=== PATIENT | female | born 1945 | race Caucasian/White ===

== ENCOUNTER 2017-02-21 20:08 | Inpatient (IN) | payer OTHER ==
[~2017-02-21] VITALS: Ht 165.1 cm; Wt 93.6 kg
[~2017-02-21 20:08] MED LIST: ONDA4TAB7 SL
[2017-02-21] MEDS ORDERED: SODIUM CHLORIDE 0.9% 1000ML 1,000 ML IV STA (20:41)
[2017-02-21] MEDS ORDERED: ONDANSETRON INJ 2 MG/ML 2 ML VIAL IV STA (20:41)
[2017-02-21 20:59] LABS: BASO % 0.3 %; BASO ABS # 0.02 K/uL (0-0.2); COMPLETE YES; EOS % 1.2 %; HEMATOCRIT 41.3 % (37-47); IG% 0.1 %; MEAN CELL VOLUME 90.6 fL (80-100); MEAN CORPUSCULAR HEMOGLOBIN 31.6 pg (25-34); MEAN CORPUSCULAR HGB CONC 34.9 g/dl (32-36); NEUT % 76.4 %; PLATELET COUNT 392 K/uL (130-400); RED BLOOD COUNT 4.56 M/uL (4.2-5.4); WHITE BLOOD COUNT 6.88 K/uL (4.8-10.8)
--- NOTE | 2017-02-21 21:08 | DIAGNOSTIC IMAGING REPORT ---
ABD/PELVIS NO IV OR ORAL CONT CT DOSE: 1121.48 mGy.cm HISTORY: Pain. Obstruction. constipation? TECHNIQUE: Multiaxial CT images of the abdomen and pelvis were performed without contrast. A dose lowering technique was utilized adhering to the principles of ALARA. COMPARISON STUDY: 02/08/2015 FINDINGS: Lung bases are generally clear. Interval development of moderate abdominal and pelvic ascites. Gallstones are present within the gallbladder lumen. Increased fecal load throughout the colon consistent with fecal stasis. Mild right renal hydronephrosis small amount of free fluid within the pelvic cul-de-sac. Possible 3 mm obstructing calculus distal right ureter. Bladder is midline. Inguinal regions are unremarkable. There is no distention of the low sigmoid. There is moderate wall thickening of the proximal sigmoid possibly related to a nonspecific colitis. No evidence for drainable abscess or collection. IMPRESSION: 1. Interval development of moderate abdominal and pelvic ascites. 2. Considerable increase in fecal load throughout the colon consistent with generalized fecal stasis. 3. Wall thickening and mild pericolonic infiltrative change of the proximal sigmoid raising the possibility of a nonspecific colitis. 4. Mild right renal hydroureteronephrosis most likely secondary to a small distal right ureteral calculus measuring 3 mm. 5. Gallstones. The above report was generated using voice recognition software. It may contain grammatical, syntax or spelling errors. Electronically signed by: Jamaal Pardo M.D. 02/21/2017 9:06 PM Dictated Date/Time: 02/21/2017 9:00 PM
[2017-02-21 21:13] LABS: BUN/CREATININE RATIO 10.4 (10-20); CALCIUM 9.7 mg/dl (8.5-10.1); CREATININE 0.8 mg/dl (0.60-1.20); POTASSIUM 3.3 mmol/L (3.5-5.1)
[2017-02-21] MEDS ORDERED: MISCTAB78 PO (21:39)
[2017-02-21] MEDS ORDERED: LEVO100T7 PO (21:39)
[2017-02-21] MEDS ORDERED: CHOL2000 PO (21:39)
[2017-02-21] MEDS ORDERED: ASPI81TA28 PO (21:39)
[2017-02-21] MEDS ORDERED: CALCTAB5 PO (21:39)
[2017-02-21] MEDS ORDERED: PANT40TA PO (21:39)
[2017-02-21] MEDS ORDERED: LACTULOSE SYRUP 30 GM/45 ML UDP PO PRN (22:15)
[2017-02-21] MEDS ORDERED: LACTULOSE SYRUP 20 GM/30 ML UDC PO STA (22:26)
[2017-02-21] MEDS ORDERED: TAP WATER ENEMA PR STA (22:26)
[2017-02-21] MEDS ORDERED: ONDANSETRON INJ 2 MG/ML 2 ML VIAL IV PRN (22:30)
--- NOTE | 2017-02-21 22:38 | EMERGENCY ROOM VISIT NOTE ---
History Report prepared by Nely: Neyda Gutierrez Under the Supervision of: Dr. Ron Fournier D.O. First contact with patient: 20:24 Chief Complaint: GI ASSESSMENT Stated Complaint: BOWEL BLOCKED, CRAMPS, PAIN, VOMITING History of Present Illness The patient is a 71 year old female who presents to the Emergency Room with complaints of constant constipation beginning 2 months ago. The patient states that she has not had a normal bowel movement in the last 2 months and has only had pellet-like stool. She reports that she saw her PCP 1 week ago and had an x- ray that showed large amounts of stool. She notes that she has been taking Mirilax every day for the last 8 days. She reports that she got the results recently and was told to take Mirilax and to do an enema every day until she had a bowel movement. The patient states that she tried an enema this morning without any success. She states that 4 hours ago she had some water and suddenly began to vomit bile and has had many episodes in the last 4 hours. She complains of rib pain, abdominal cramping, bloating, and stomach gurgling. The patient states that she has not been eating normally and is not eating much food because she feels full very quickly. Source of History: patient Onset: 2 months ago Position: other (global) Quality: other (constipation) Timing: constant Associated Symptoms: + abdominal pain Note: She complains of rib pain, abdominal cramping, bloating, and stomach gurgling. Review of Systems See HPI for pertinent positives & negatives. A total of 10 systems reviewed and were otherwise negative. Past Medical & Surgical Medical Problems: (1) Abdominal pain (2) Diverticulitis Family History No significant family history Social History Smoking Status: Never Smoker Marital Status: Occupation Status: retired Current/Historical Medications Scheduled Aspirin (Aspirin Ec), 81 MG PO TW Calcium Carbonate (Caltrate 600), 1 TAB PO BID Cholecalciferol (Vitamin D3), 1 CAP PO DAILY Levothyroxine Sodium (Levothyroxine Sodium), 1 TAB PO DAILY Misc Natural Products (Osteo Bi-Flex Advanced Do), 2 TABS PO DAILY Pantoprazole (Protonix), 40 MG PO DAILY Scheduled PRN Ondansetron (Zofran Odt), 1-2 TABS SL Q6H PRN for Nausea Allergies Coded Allergies: No Known Allergies (Unverified , 02/21/17) Physical Exam Vital Signs Date Time Temp Pulse Resp B/P (MAP) Pulse Ox O2 Delivery O2 Flow Rate FiO2 02/21/17 21:41 89 02/21/17 21:01 93 18 130/88 94 Room Air 02/21/17 20:14 36.6 104 20 134/86 97 Room Air Physical Exam CONSTITUTIONAL/VITAL SIGNS: Reviewed / noted above. GENERAL: Non-toxic in appearance. INTEGUMENTARY: Warm, dry, and [place]. HEAD: Normocephalic. EYES: without scleral icterus or trauma. ENT/OROPHARYNX: clear and moist. LYMPHADENOPATHY/NECK: Is supple without lymphadenopathy or meningismus. RESPIRATORY: Lungs clear and equal. CARDIOVASCULAR: Regular rate and rhythm. GI/ABDOMEN: Soft and nontender. No organomegaly or pulsatile mass. No rebound or guarding. Normal bowel sounds. EXTREMITIES: Warm and well perfused. BACK: No CVA tenderness. NEUROLOGICAL: Intact without focal deficits. PSYCHIATRIC: normal affect. MUSCULOSKELETAL: Normally developed with good muscle tone. Medical Decision & Procedures ER Provider Diagnostic Interpretation: CT results as stated below per my review and radiologist interpretation: ABD/PELVIS NO IV OR ORAL CONT FINDINGS: Lung bases are generally clear. Interval development of moderate abdominal and pelvic ascites. Gallstones are present within the gallbladder lumen. Increased fecal load throughout the colon consistent with fecal stasis. Mild right renal hydronephrosis small amount of free fluid within the pelvic cul-de-sac. Possible 3 mm obstructing calculus distal right ureter. Bladder is midline. Inguinal regions are unremarkable. There is no distention of the low sigmoid. There is moderate wall thickening of the proximal sigmoid possibly related to a nonspecific colitis. No evidence for drainable abscess or collection. IMPRESSION: 1. Interval development of moderate abdominal and pelvic ascites. 2. Considerable increase in fecal load throughout the colon consistent with generalized fecal stasis. 3. Wall thickening and mild pericolonic infiltrative change of the proximal sigmoid raising the possibility of a nonspecific colitis. 4. Mild right renal hydroureteronephrosis most likely secondary to a small distal right ureteral calculus measuring 3 mm. 5. Gallstones. The above report was generated using voice recognition software. It may contain grammatical, syntax or spelling errors. Electronically signed by: Jamaal Pardo M.D. 02/21/2017 9:06 PM Dictated Date/Time: 02/21/2017 9:00 PM Laboratory Results 02/21/17 20:45 Red Blood Count 4.56, Mean Corpuscular Volume 90.6, Mean Corpuscular Hemoglobin 31.6, Mean Corpuscular Hemoglobin Concent 34.9, Mean Platelet Volume 9.0, Neutrophils (%) (Auto) 76.4, Lymphocytes (%) (Auto) 16.0, Monocytes (%) (Auto) 6.0, Eosinophils (%) (Auto) 1.2, Basophils (%) (Auto) 0.3, Neutrophils # (Auto) 5.26, Lymphocytes # (Auto) 1.10, Monocytes # (Auto) 0.41, Eosinophils # (Auto) 0.08, Basophils # (Auto) 0.02 02/21/17 20:45 Test 02/21/17 20:45 White Blood Count 6.88 K/uL (4.8-10.8) Red Blood Count 4.56 M/uL (4.2-5.4) Hemoglobin 14.4 g/dL (12.0-16.0) Hematocrit 41.3 % (37-47) Mean Corpuscular Volume 90.6 fL (80-100) Mean Corpuscular Hemoglobin 31.6 pg (25-34) Mean Corpuscular Hemoglobin Concent 34.9 g/dl (32-36) Platelet Count 392 K/uL (130-400) Mean Platelet Volume 9.0 fL (7.4-10.4) Neutrophils (%) (Auto) 76.4 % Lymphocytes (%) (Auto) 16.0 % Monocytes (%) (Auto) 6.0 % Eosinophils (%) (Auto) 1.2 % Basophils (%) (Auto) 0.3 % Neutrophils # (Auto) 5.26 K/uL (1.4-6.5) Lymphocytes # (Auto) 1.10 K/uL (1.2-3.4) Monocytes # (Auto) 0.41 K/uL (0.11-0.59) Eosinophils # (Auto) 0.08 K/uL (0-0.5) Basophils # (Auto) 0.02 K/uL (0-0.2) RDW Standard Deviation 44.2 fL (36.4-46.3) RDW Coefficient of Variation 13.3 % (11.5-14.5) Immature Granulocyte % (Auto) 0.1 % Immature Granulocyte # (Auto) 0.01 K/uL (0.00-0.02) Anion Gap 9.0 mmol/L (3-11) Est Creatinine Clear Calc Drug Dose 72.9 ml/min Estimated GFR () 86.0 Estimated GFR (Non- 74.2 BUN/Creatinine Ratio 10.4 (10-20) Calcium Level 9.7 mg/dl (8.5-10.1) Total Bilirubin 0.5 mg/dl (0.2-1) Direct Bilirubin 0.1 mg/dl (0-0.2) Aspartate Amino Transf (AST/SGOT) 22 U/L (15-37) Alanine Aminotransferase (ALT/SGPT) 20 U/L (12-78) Alkaline Phosphatase 76 U/L (45-117) Total Protein 7.7 gm/dl (6.4-8.2) Albumin 3.3 gm/dl (3.4-5.0) Lipase 128 U/L (73-393) Laboratory results as stated above per my review. Medications Administered Medications (Trade) Dose Ordered Sig/Rose Route Start Time Stop Time Status Last Admin Dose Admin Sodium Chloride 1,000 ml @ 999 mls/hr Q1H1M STAT IV 02/21/17 20:41 02/21/17 21:41 DC 02/21/17 20:41 999 MLS/HR Ondansetron HCl (Zofran Inj) 4 mg NOW STAT IV 02/21/17 20:41 02/21/17 20:42 DC 02/21/17 21:13 4 MG ED Course 2023: Previous medical records were reviewed. The patient was evaluated in room B6. A complete history and physical examination was performed. 2040: Zofran Inj 4mg IV, Sodium Chloride 1000 ml @ 999 mls/hr IV. 2133: Discussed the patient's case with Dr. Garrett. The patient will be evaluated for further treatment and disposition. 2141: On reevaluation, the patient is doing well. I discussed the results and findings with the patient. She verbalized agreement of the treatment plan. I spoke with Dr. Brown kelly. The patient will be evaluated for further management and care. Medical Decision Differential considered: pancreatitis, hepatitis, or acute cholecystitis, AAA, UTI, pyelonephritis, kidney stones, appendicitis, diverticulitis, shingles, bowel obstruction mesenteric ischemia, intussusception,hernia, testicular torsion, ovarian torsion, ruptured ovarian cyst,ectopic , . This is a 71-year-old female who presents to the ED with a chief complaint of not having a normal bowel movement for the past 2 months. The patient states that she has been passing stool similar to this is of a rabbit. She states that she has developed over the last week, early satiety. The patient states that instead of losing weight, she has been gaining weight. Her abdomen feels bloated. Her PCP did x-rays on February 11 and found that she was constipated. She recommended Ana lax as well as enema. The patient has been using Ana lax all week without improvement of symptoms. Today she did up significant abdominal cramps and pain. The patient's physical exam was relatively unremarkable. She had no abdominal tenderness on exam. A CT scan of the abdomen pelvis reveals moderate abdominal and pelvic ascites. She has fecal stasis noted and some pericolonic infiltrative changes. There is also noted to be a 3 mm right distal calculus with mild hydronephrosis. The patient's CBC and complete metabolic panel were unremarkable. Lipase was normal. The patient was told the results of the tests. Because of her symptoms and developing ascites as well as her abnormal changes in stool, she will be seen by the hospitalist for further inpatient evaluation and care. Medication Reconcilliation Current Medication List: was personally reviewed by me Blood Pressure Screening Patient's blood pressure: Elevated blood pressure Blood pressure disposition: Elevated BP felt to be situational Consults Time Called: 2119 Consulting Physician: Dr. Maximino Campa Returned Call: [phone] Discussed the patient's case with Dr. Ly. The patient will be evaluated for further treatment and disposition. Impression Primary Impression: Ascitic fluid Additional Impressions: Constipated Colitis Nausea & vomiting Change in bowel movement Scribe Attestation The scribe's documentation has been prepared under my direction and personally reviewed by me in its entirety. I confirm that the note above accurately reflects all work, treatment, procedures, and medical decision making performed by me. Departure Information Dispostion Being Evaluated By Hospitalist Referrals Geena Watts D.O. (PCP) Patient Instructions My [facility] Problem Qualifiers
[2017-02-21] MEDS ORDERED: ONDANSETRON INJ 2 MG/ML 2 ML VIAL ONE (22:49)
[2017-02-21 22:50] LABS: MAGNESIUM 1.9 mg/dl (1.8-2.4); THYROID STIMULATING HORMONE 3.63 uIu/ml (0.300-4.500)
[2017-02-21] MEDS ORDERED: PANTOprazole INJ 40 MG in SYRINGE 0 ML IV STA (22:51)
[2017-02-21 23:27] VITALS: BP 149/84; PULSE 95; TEMP 36.8; O2SAT 95
[2017-02-21 23:45] VITALS: BP 149/84; PULSE 95; TEMP 36.8; O2SAT 93; Ht 165.1 cm; Wt 93.6 kg
[2017-02-22] MEDS: POTASSIUM CHLR 10 MEQ / WTR 10 MEQ in PREMIXED WATER 100 ML IV SCH ×4 (00:12→05:26)
[2017-02-22] MEDS: D5NSS + 20MEQ KCL 1,000 ML IV SCH ×2 (00:12→09:23)
--- NOTE | 2017-02-22 00:51 | History and Physical ---
History & Physical Date & Time of Service: Feb 22, 2017 at 00:38 Chief Complaint: Abdominal Pain Primary Care Physician: Geena Watts D.O. History of Present Illness Source: patient, clinic records, hospital records 71 year old female with history of hypothyroidism, HLD presenting with nausea x [address] Esquivel for Primary Care. 2 months prior to admission, patient started to experience constipation, producing only small and occasionally loose stools. At the end of January, patient was seen by her PCP, KUB done showed large amount of stools in the colon, and was given Miralax. Per patient, she has tried with Miralax and even one dose of enema this morning with not much improvement. Later this afternoon, patient drank water but apparently thew it up right after , and had more bilious vomiting. She then presented to the ER. CT abdomen: 1. Interval development of moderate abdominal and pelvic ascites. 2. Considerable increase in fecal load throughout the colon consistent with generalized fecal stasis. 3. Wall thickening and mild pericolonic infiltrative change of the proximal sigmoid raising the possibility of a nonspecific colitis. 4. Mild right renal hydroureteronephrosis most likely secondary to a small distal right ureteral calculus measuring 3 mm. 5. Gallstones. On my exam, patient seen laying in bed, comfortable. Has occasional diffuse abdominal discomfort. Denies weight loss, poor appetite, but reports decreased urine output. No other symptoms. Patient reports Colonoscopy done 2-[address] Pereira for screening, and revealed polyps. Past Medical/Surgical History Medical Problems: (1) Diverticulitis Status: Resolved Family History No significant family history Social History Smoking Status: Never Smoker Smokeless Tobacco Use: No Alcohol Use: none Drug Use: none Marital Status: Housing status: lives with family Occupational Status: retired Multi-Drug Resistant Organisms History of MDRO: No Allergies Coded Allergies: No Known Allergies (Unverified , 02/21/17) Home Medications Scheduled Aspirin (Aspirin Ec), 81 MG PO TW Calcium Carbonate (Caltrate 600), 1 TAB PO BID Cholecalciferol (Vitamin D3), 1 CAP PO DAILY Levothyroxine Sodium (Levothyroxine Sodium), 1 TAB PO DAILY Misc Natural Products (Osteo Bi-Flex Advanced Do), 2 TABS PO DAILY Pantoprazole (Protonix), 40 MG PO DAILY Scheduled PRN Ondansetron (Zofran Odt), 1-2 TABS SL Q6H PRN for Nausea Review of Systems Constitutional- no fever; no weight loss Eyes- no acute visual changes ENT- no sinus drainage; no pharyngitis Pulmonary- no cough, no wheezing, no shortness of breath Cardiac- no chest pain, no palpitations, no orthopnea, no dependent edema GI- (+) as noted above - no dysuria, no hematuria Musculoskeletal- no arthralgias, no myalgias Derm- no rashes, no new skin lesions, no changing skin lesions Hematologic- no unusual bruising, no unusual bleeding Lymphatics- no adenopathy Endocrine- no polyuria or polydipsia; no heat or cold intolerance Neuro- no headaches, no focal neurologic symptoms Psych- no anxiety, no depression Physical Exam Vital Signs Date Time Temp Pulse Resp B/P (MAP) Pulse Ox O2 Delivery O2 Flow Rate FiO2 02/21/17 23:27 36.8 95 18 149/84 (105) 95 Room Air 02/21/17 22:58 36.6 101 15 134/85 93 02/21/17 22:55 134/85 02/21/17 22:53 101 15 93 02/21/17 22:48 100 24 93 02/21/17 22:43 94 21 91 02/21/17 22:38 101 19 94 02/21/17 22:33 98 20 02/21/17 22:28 99 19 02/21/17 22:23 97 25 02/21/17 22:18 101 22 02/21/17 22:13 95 27 02/21/17 22:08 98 23 02/21/17 22:03 97 26 02/21/17 21:58 93 22 95 02/21/17 21:53 100 21 95 02/21/17 21:48 92 22 94 02/21/17 21:43 98 22 94 02/21/17 21:41 89 02/21/17 21:38 96 21 93 02/21/17 21:33 91 24 96 02/21/17 21:28 95 20 96 02/21/17 21:23 83 26 95 02/21/17 21:18 85 23 96 02/21/17 21:01 93 18 130/88 94 Room Air 02/21/17 21:01 130/88 02/21/17 20:14 36.6 104 20 134/86 97 Room Air General Appearance: WD/WN, no apparent distress Head: normocephalic, atraumatic Eyes: normal inspection, EOMI, sclerae normal ENT: normal ENT inspection, hearing grossly normal, pharynx normal Neck: supple, no adenopathy, thyroid normal, no JVD, trachea midline Respiratory/Chest: chest non-tender, lungs clear, normal breath sounds Cardiovascular: regular rate, rhythm, no edema, no JVD, no murmur Abdomen/GI: non tender, soft, + distended (mildly), + pertinent finding ( hypoactive bowel sounds) Back: normal inspection, no CVA tenderness Extremities/Musculoskelatal: normal inspection, no calf tenderness, no pedal edema 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, no motor/sensory deficits, alert, normal mood/affect, oriented x 3 Skin: normal color, warm/dry, no rash Lymphatic: no adenopathy Diagnostics Laboratory Results Results Past 24 Hours Test 02/21/17 20:45 Range/Units White Blood Count 6.88 4.8-10.8 K/uL Red Blood Count 4.56 4.2-5.4 M/uL Hemoglobin 14.4 12.0-16.0 g/dL Hematocrit 41.3 37-47 % Mean Corpuscular Volume 90.6 80-100 fL Mean Corpuscular Hemoglobin 31.6 25-34 pg Mean Corpuscular Hemoglobin Concent 34.9 32-36 g/dl Platelet Count 392 130-400 K/uL Mean Platelet Volume 9.0 7.4-10.4 fL Neutrophils (%) (Auto) 76.4 % Lymphocytes (%) (Auto) 16.0 % Monocytes (%) (Auto) 6.0 % Eosinophils (%) (Auto) 1.2 % Basophils (%) (Auto) 0.3 % Neutrophils # (Auto) 5.26 1.4-6.5 K/uL Lymphocytes # (Auto) 1.10 1.2-3.4 K/uL Monocytes # (Auto) 0.41 0.11-0.59 K/uL Eosinophils # (Auto) 0.08 0-0.5 K/uL Basophils # (Auto) 0.02 0-0.2 K/uL RDW Standard Deviation 44.2 36.4-46.3 fL RDW Coefficient of Variation 13.3 11.5-14.5 % Immature Granulocyte % (Auto) 0.1 % Immature Granulocyte # (Auto) 0.01 0.00-0.02 K/uL Sodium Level 135 136-145 mmol/L Potassium Level 3.3 3.5-5.1 mmol/L Chloride Level 101 98-107 mmol/L Carbon Dioxide Level 25 21-32 mmol/L Anion Gap 9.0 3-11 mmol/L Blood Urea Nitrogen 8 7-18 mg/dl Creatinine 0.80 0.60-1.20 mg/dl Est Creatinine Clear Calc Drug Dose 72.9 ml/min Estimated GFR () 86.0 Estimated GFR (Non- 74.2 BUN/Creatinine Ratio 10.4 10-20 Random Glucose 100 70-99 mg/dl Calcium Level 9.7 8.5-10.1 mg/dl Magnesium Level 1.9 1.8-2.4 mg/dl Total Bilirubin 0.5 0.2-1 mg/dl Direct Bilirubin 0.1 0-0.2 mg/dl Aspartate Amino Transf (AST/SGOT) 22 15-37 U/L Alanine Aminotransferase (ALT/SGPT) 20 12-78 U/L Alkaline Phosphatase 76 45-117 U/L Total Protein 7.7 6.4-8.2 gm/dl Albumin 3.3 3.4-5.0 gm/dl Lipase 128 73-393 U/L Thyroid Stimulating Hormone (TSH) 3.630 0.300-4.500 uIu/ml Diagnostic Radiology per h&P Impression Assessment and Plan 71 year old female with history of hypothyroidism, HLD presenting with nausea x 1 day. CONSTIPATION, FECAL IMPACTION - check TSH - trial of Tap water enema, Lactulose - strict NPO D5 + NSS - GI consulted MODERATE ASCITES - liver panel normal - may need diagnostic paracentesis GI Consulted CHOLELITHIASIS - asymptomatic R URETERAL STONE 3MM WITH MILD RIGHT HYDRONEPHROSIS - will consult Urology PROXIMAL SIGMOID THICKENING - may need repeat Colonoscopy HYPOKALEMIA - IV K ordered - monitor DVT prophylaxis SCDs Full Code Dispo pending anticipate d/c home when medically stable, cleared by GI ff up with Dr. Boudreaux for PCP VTE Prophylaxis VTE Risk Assessment Done? Y/N: Yes Risk Level: Moderate Given or contraindicated: SCD's
[2017-02-22] MEDS: ONDANSETRON INJ 2 MG/ML 2 ML VIAL IV PRN ×3 (05:25→18:03)
[2017-02-22] MEDS: KETOROLAC TROMETHAMINE 15 MG/ML VIAL IV PRN (06:07)
[2017-02-22 06:12] LABS: BASO % 0.1 %; BASO ABS # 0.01 K/uL (0-0.2); COMPLETE YES; EOS % 0.3 %; HEMATOCRIT 40.7 % (37-47); IG% 0.1 %; LYMPH ABS # 1.01 K/uL (1.2-3.4); MEAN CELL VOLUME 91.5 fL (80-100); MEAN CORPUSCULAR HEMOGLOBIN 30.8 pg (25-34); MEAN CORPUSCULAR HGB CONC 33.7 g/dl (32-36); MEAN PLATELET VOLUME 9.3 fL (7.4-10.4); MONO % 6.4 %; NEUT % 78.1 %; PLATELET COUNT 406 K/uL (130-400); RED BLOOD COUNT 4.45 M/uL (4.2-5.4); WHITE BLOOD COUNT 6.75 K/uL (4.8-10.8)
[2017-02-22 06:56] LABS: BUN/CREATININE RATIO 7.7 (10-20); CALCIUM 8.9 mg/dl (8.5-10.1); CREATININE 0.79 mg/dl (0.60-1.20); POTASSIUM 4.3 mmol/L (3.5-5.1)
[2017-02-22 07:14] VITALS: BP 120/81; PULSE 90; TEMP 36.7; O2SAT 92
[2017-02-22] MEDS: PANTOprazole INJ 40 MG in SYRINGE 0 ML IV SCH (09:22)
[2017-02-22] MEDS: LEVOTHYROXINE SODIUM INJ 25 MCG in SYRINGE 0 ML IV SCH (09:22)
[2017-02-22] MEDS ORDERED: NURSING VERBAL MED ORDER ONE ×2 (10:30→15:00)
[2017-02-22] MEDS: D5W AND NSS 1,000 ML IV SCH ×2 (10:47→23:15)
[2017-02-22] MEDS ORDERED: METOCLOPRAMIDE HCL INJ 5 MG/ML 2 ML VIAL IV PRN (14:00)
[2017-02-22] MEDS ORDERED: METOCLOPRAMIDE HCL INJ 5 MG/ML 2 ML VIAL IV STA (14:00)
[2017-02-22 14:35] VITALS: BP 136/84; PULSE 88; TEMP 36.7; O2SAT 95
[2017-02-22] MEDS: TAP WATER ENEMA PR SCH (15:30)
[2017-02-22 16:14] LABS: URINE APPEARANCE CLOUDY (CLEAR); URINE COLOR DK YELLOW; URINE EPITHELIAL CELL AUTO >30 /lpf (0-5); URINE NITRITE NEG (NEG); URINE SPECIFIC GRAVITY 1.026 (1.000-1.030); UROBILINOGEN NEG (NEG)
[2017-02-22 16:25] LABS: MANUAL MICROSCOPIC REQUIRED? NO; REVIEW REQ? YES; URINE BILIRUBIN NEG (NEG)
--- NOTE | 2017-02-22 16:26 | Gastrointestinal Consultation ---
Gastrointestinal Consultation Date of Consultation: Feb 22, 2017 Attending Physician: Luis Vieira Consulting Physician: Michael Navarro Reason for Consultation: contispation, ascites History of Present Illness Patient is a 71 year old female with chief complaint of constipation. Pt states her usual BM pattern once a day formed stool until about 2 months ago change in bms with skinny stools and difficulty moving bowels. Recently told by PCO to take miralax and despite 8 days of that worsening abd pain up to 7/10 with abd distension and minimal BMs. No bloody nor black stools. Has been gaining wt despite poor appetitis. No dyspahgia. No bloody nor black stools. New GERD placed on protonix recently. 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 CT scan a/p gallstones, moderate ascites, increased fecal load, 3 mm R renal stone with hydronephrosis, mod thickening proximal sigmoid. . Ascites new since 01/2015 CT. Outpt EMR noted colonoscopy by Dr Pereira 01/2014 showing sigmoid diverticulosis and AC and HF polyps removed path tubular adenoma. She has no abd pain at present. She has had 3 enemas this admit last one recently with no results. Past Medical/Surgical History Medical Problems: (1) Ascitic fluid Status: Acute (2) Change in bowel movement Status: Acute (3) Colitis Status: Acute (4) Constipated Status: Acute (5) Nausea & vomiting Status: Acute Family History No significant family history Social History Smoking Status: Never Smoker Drug Use: none Marital Status: Occupation Status: retired Allergies Coded Allergies: No Known Allergies (Unverified , 02/21/17) Current Medications Home Meds and Scripts Medications Dose Route/Sig Max Daily Dose Days Date Category Caltrate 600 (Calcium Carbonate) 1,500 Mg Tab 1 Tab PO BID 02/21/17 Reported Osteo Bi-Flex Advanced Do (Misc Natural Products) 1 Tab Tab 2 Tabs PO DAILY 02/21/17 Reported Aspirin Ec (Aspirin) 81 Mg Tab 81 Mg PO TW 02/21/17 Reported Vitamin D3 (Cholecalciferol) 2,000 Unit Cap 1 Cap PO DAILY 30 02/21/17 Reported Levothyroxine Sodium 100 Mcg Tab 1 Tab PO DAILY 30 02/21/17 Reported Protonix (Pantoprazole Sodium) 40 Mg Tab 40 Mg PO DAILY 02/21/17 Reported Zofran Odt (Ondansetron) 4 Mg Tab 1-2 Tabs SL Q6H PRN 02/08/15 Rx Review of Systems 10 ROS negative except as in HPI Physical Exam Date Time Temp Pulse Resp B/P (MAP) Pulse Ox O2 Delivery O2 Flow Rate FiO2 02/22/17 15:20 Room Air 02/22/17 14:35 36.7 88 18 136/84 (101) 95 Room Air 02/22/17 09:00 Room Air 02/22/17 07:14 36.7 90 18 120/81 (94) 92 Room Air 02/21/17 23:45 36.8 95 18 149/84 93 Room Air 02/21/17 23:27 36.8 95 18 149/84 (105) 95 Room Air 02/21/17 22:58 36.6 101 15 134/85 93 02/21/17 22:55 134/85 02/21/17 22:53 101 15 93 02/21/17 22:48 100 24 93 02/21/17 22:43 94 21 91 02/21/17 22:38 101 19 94 02/21/17 22:33 98 20 02/21/17 22:28 99 19 02/21/17 22:23 97 25 02/21/17 22:18 101 22 02/21/17 22:13 95 27 02/21/17 22:08 98 23 02/21/17 22:03 97 26 02/21/17 21:58 93 22 95 02/21/17 21:53 100 21 95 02/21/17 21:48 92 22 94 02/21/17 21:43 98 22 94 02/21/17 21:41 89 02/21/17 21:38 96 21 93 02/21/17 21:33 91 24 96 02/21/17 21:28 95 20 96 02/21/17 21:23 83 26 95 02/21/17 21:18 85 23 96 02/21/17 21:01 93 18 130/88 94 Room Air 02/21/17 21:01 130/88 02/21/17 20:14 36.6 104 20 134/86 97 Room Air General Appearance: WD/WN, no apparent distress ENT: hearing grossly normal, pharynx normal Neck: supple, trachea midline Respiratory/Chest: lungs clear, no respiratory distress Cardiovascular: regular rate, rhythm, + pertinent finding (mild bilateral lower ext edema) Abdomen: normal bowel sounds, non tender, no organomegaly, + pertinent finding (abdomen distended and tymanitic) 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/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: 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, no motor/sensory deficits, normal mood/affect Skin: normal color, no jaundice Laboratory Results Last 24 Hours Test 02/21/17 20:45 02/22/17 05:42 White Blood Count 6.88 K/uL 6.75 K/uL Red Blood Count 4.56 M/uL 4.45 M/uL Hemoglobin 14.4 g/dL 13.7 g/dL Hematocrit 41.3 % 40.7 % Mean Corpuscular Volume 90.6 fL 91.5 fL Mean Corpuscular Hemoglobin 31.6 pg 30.8 pg Mean Corpuscular Hemoglobin Concent 34.9 g/dl 33.7 g/dl Platelet Count 392 K/uL 406 K/uL Mean Platelet Volume 9.0 fL 9.3 fL Neutrophils (%) (Auto) 76.4 % 78.1 % Lymphocytes (%) (Auto) 16.0 % 15.0 % Monocytes (%) (Auto) 6.0 % 6.4 % Eosinophils (%) (Auto) 1.2 % 0.3 % Basophils (%) (Auto) 0.3 % 0.1 % Neutrophils # (Auto) 5.26 K/uL 5.27 K/uL Lymphocytes # (Auto) 1.10 K/uL 1.01 K/uL Monocytes # (Auto) 0.41 K/uL 0.43 K/uL Eosinophils # (Auto) 0.08 K/uL 0.02 K/uL Basophils # (Auto) 0.02 K/uL 0.01 K/uL RDW Standard Deviation 44.2 fL 45.1 fL RDW Coefficient of Variation 13.3 % 13.4 % Immature Granulocyte % (Auto) 0.1 % 0.1 % Immature Granulocyte # (Auto) 0.01 K/uL 0.01 K/uL Sodium Level 135 mmol/L 138 mmol/L Potassium Level 3.3 mmol/L 4.3 mmol/L Chloride Level 101 mmol/L 105 mmol/L Carbon Dioxide Level 25 mmol/L 25 mmol/L Anion Gap 9.0 mmol/L 8.0 mmol/L Blood Urea Nitrogen 8 mg/dl 6 mg/dl Creatinine 0.80 mg/dl 0.79 mg/dl Est Creatinine Clear Calc Drug Dose 72.9 ml/min 73.9 ml/min Estimated GFR () 86.0 87.3 Estimated GFR (Non- 74.2 75.3 BUN/Creatinine Ratio 10.4 7.7 Random Glucose 100 mg/dl 97 mg/dl Calcium Level 9.7 mg/dl 8.9 mg/dl Magnesium Level 1.9 mg/dl 2.0 mg/dl Total Bilirubin 0.5 mg/dl Direct Bilirubin 0.1 mg/dl Aspartate Amino Transf (AST/SGOT) 22 U/L Alanine Aminotransferase (ALT/SGPT) 20 U/L Alkaline Phosphatase 76 U/L Total Protein 7.7 gm/dl Albumin 3.3 gm/dl Lipase 128 U/L Thyroid Stimulating Hormone (TSH) 3.630 uIu/ml Impression changes in BMs/constipation--TSh normal---prep from below not working. Start golytely and will likely take 48 hours to prep with colonscopy when prepped. ascites--recomend diagnostic paracentesis--rule out cirrhosis, cancer n/v--secondary to obstipation thickened sigmoid on CT scan--visualize at time of colonoscopy. I am going off service tomorrow 02/23/[address] Pereira assuming GI care then.
[2017-02-22] MEDS: LAVAGE SOLUTION 4000ML PO SCH (18:03)
--- NOTE | 2017-02-22 18:54 | Progress Note ---
Progress Note Date of Service Feb 22, 2017. Progress Note was informed by nurse that patient had dark colored vomiting. started after she was drinking golytely fluid with recent tea beverage. has had multiple episodes of small of vomitus today. will keep npo except meds. will hold golytely for now. patient agrees to NG tube with intermittent suction. will try to suction upper GI fluids and air before restarting GI practice management consultant's plan for golytely prior to colonoscopy. will send CBC and INR to ensure that the dark colored vomit is tea and food rather than bleeding. otherwise patient appears comfortable and not in distress and voices agreement with above plan.
--- NOTE | 2017-02-22 19:16 | DIAGNOSTIC IMAGING REPORT ---
CHEST ONE VIEW PORTABLE CLINICAL HISTORY: NG tube placement. Tube position COMPARISON STUDY: No previous studies for comparison. FINDINGS: Nasogastric tube positioned within the gastric fundus. Mild left basilar atelectasis. Lungs otherwise appear clear. IMPRESSION: Nasogastric tube coiled within the gastric fundus The above report was generated using voice recognition software. It may contain grammatical, syntax or spelling errors. Electronically signed by: Jamaal Pardo M.D. 02/22/2017 7:14 PM Dictated Date/Time: 02/22/2017 7:14 PM
[2017-02-22] MEDS: SENNA 8.6 MG TAB PO SCH (20:00)
--- NOTE | 2017-02-22 20:20 | DIAGNOSTIC IMAGING REPORT ---
CHEST ONE VIEW PORTABLE CLINICAL HISTORY: recheck of ng placement tube position COMPARISON STUDY: 02/22/2017 at 7:09 PM FINDINGS: Nasogastric tube remains coiled at its distal aspect. Appears to been pulled back somewhat is and is at the gastroesophageal junction. IMPRESSION: Nasogastric tube is currently coiled with its tip at the gastroesophageal junction. This again should be repositioned. The above report was generated using voice recognition software. It may contain grammatical, syntax or spelling errors. Electronically signed by: Jamaal Pardo M.D. 02/22/2017 8:19 PM Dictated Date/Time: 02/22/2017 8:17 PM
[2017-02-22 20:43] LABS: BASO % 0.1 %; BASO ABS # 0.01 K/uL (0-0.2); COMPLETE YES; EOS % 0.1 %; HEMATOCRIT 43.3 % (37-47); IG% 0.2 %; LYMPH % 8.2 %; LYMPH ABS # 0.67 K/uL (1.2-3.4); MEAN CELL VOLUME 93.1 fL (80-100); MEAN CORPUSCULAR HEMOGLOBIN 30.3 pg (25-34); MEAN CORPUSCULAR HGB CONC 32.6 g/dl (32-36); MEAN PLATELET VOLUME 9.2 fL (7.4-10.4); MONO % 7.5 %; NEUT % 83.9 %; PLATELET COUNT 427 K/uL (130-400); RED BLOOD COUNT 4.65 M/uL (4.2-5.4); WHITE BLOOD COUNT 8.14 K/uL (4.8-10.8)
[2017-02-22 20:54] LABS: PARTIAL THROMBOPLASTIN RATIO 0.8; PROTHROMBIN TIME (PATIENT) 10.7 SECONDS (9.0-12.0)
--- NOTE | 2017-02-22 21:56 | DIAGNOSTIC IMAGING REPORT ---
CHEST ONE VIEW PORTABLE CLINICAL HISTORY: RECHECK OF NGT PLACEMENT COMPARISON STUDY: No previous studies for comparison. FINDINGS: Nasogastric tube is now coiled gastric fundus at the juncture with the gastroesophageal junction. Given the lack of resolution to the coil, it is recommended that this catheter be removed and a new catheter replaced. IMPRESSION: 1. Tube remains coiled at and are slightly distal to the gastroesophageal junction. 2. Is recommended this tube be removed and a new one inserted The above report was generated using voice recognition software. It may contain grammatical, syntax or spelling errors. Electronically signed by: Jamaal Pardo M.D. 02/22/2017 9:55 PM Dictated Date/Time: 02/22/2017 9:54 PM
[2017-02-22 22:47] VITALS: BP 135/86; PULSE 105; TEMP 36.7; O2SAT 92
[2017-02-23] VITALS (8 sets, daily range): BP systolic 119–136; BP diastolic 75–86; PULSE 82–97; TEMP 36.6–37; O2SAT 92–98
[2017-02-23 05:40] LABS: BASO % 0.2 %; BASO ABS # 0.01 K/uL (0-0.2); COMPLETE YES; EOS % 0.7 %; HEMATOCRIT 41.8 % (37-47); IG% 0.2 %; LYMPH % 16.1 %; MEAN CELL VOLUME 93.7 fL (80-100); MEAN CORPUSCULAR HEMOGLOBIN 29.4 pg (25-34); MEAN CORPUSCULAR HGB CONC 31.3 g/dl (32-36); MEAN PLATELET VOLUME 9.1 fL (7.4-10.4); MONO % 13.6 %; NEUT % 69.2 %; PLATELET COUNT 363 K/uL (130-400); RED BLOOD COUNT 4.46 M/uL (4.2-5.4); WHITE BLOOD COUNT 4.35 K/uL (4.8-10.8)
[2017-02-23 05:41] LABS: PARTIAL THROMBOPLASTIN RATIO 0.9; PROTHROMBIN TIME (PATIENT) 10.8 SECONDS (9.0-12.0)
[2017-02-23] MEDS: LAVAGE SOLUTION 4000ML PO SCH (06:00)
[2017-02-23 06:02] LABS: BUN/CREATININE RATIO 9.5 (10-20); CALCIUM 8.2 mg/dl (8.5-10.1); CREATININE 0.87 mg/dl (0.60-1.20)
[2017-02-23 06:07] LABS: ALB/GLOB RATIO 0.7 (0.9-2)
[2017-02-23] MEDS: D5W AND NSS 1,000 ML IV SCH ×3 (07:44→23:37)
--- NOTE | 2017-02-23 09:53 | Procedure Note ---
Procedure Note Date of Service Feb 23, 2017. Procedure Note Paracentesis performed [ Right] upper Quadrant [0.3 ] l of clear-yellow fluid removed
[2017-02-23] MEDS: LEVOTHYROXINE SODIUM INJ 25 MCG in SYRINGE 0 ML IV SCH (10:09)
[2017-02-23] MEDS: PANTOprazole INJ 40 MG in SYRINGE 0 ML IV SCH (10:09)
--- NOTE | 2017-02-23 11:12 | DIAGNOSTIC IMAGING REPORT ---
ULTRASOUND-GUIDED DIAGNOSTIC PARACENTESIS: CLINICAL HISTORY: 71-year-old female with new onset ascites. COMPARISON: CT from 02/21/2017. PROCEDURE: The procedure and its risks, benefits and alternatives were discussed with the patient and written informed consent was obtained. Preliminary ultrasound of the abdomen was performed to determine a safe needle entry site. The right upper quadrant was prepped and draped in the usual sterile fashion. 1% Lidocaine was used for local anesthesia. A paracentesis needle-sheath was inserted into the peritoneal space using ultrasound guidance. The needle was removed and the sheath was connected to tubing and a vacuum suction device. A total of 0.3 liters of clear yellow ascites was aspirated. The sheath was removed and a sterile dressing applied. The patient tolerated the procedure well and there were no immediate complications. IMPRESSION: Ultrasound-guided diagnostic paracentesis with aspiration of 0.3 liters of ascites. Electronically signed by: Wang Shipman M.D. 02/23/2017 11:10 AM Dictated Date/Time: 02/23/2017 11:09 AM
[2017-02-23] MEDS: SENNA 8.6 MG TAB PO SCH ×2 (11:23→21:16)
[2017-02-23] MEDS: TAP WATER ENEMA PR SCH ×2 (11:23→21:17)
[2017-02-23 11:29] LABS: PERIT FL WBC 846 /uL (0-300); PERITONEAL FLUID RBC 3000 /uL
[2017-02-23] MEDS ORDERED: SODIUM CHLORIDE 0.9% 1000ML 1,000 ML IV SCH (14:15)
--- NOTE | 2017-02-23 16:24 | PROGRESS NOTE ---
DATE: 02/23/2017 SUBJECTIVE: The patient is still constipated, although she did have a bowel movement after receiving an enema today for the first time in probably a week. She still feels very distended and feels like there is probably still a lot of stool in her colon. She has been ordered Senokot twice a day orally and tap water enemas per rectum twice a day as well. Her CT scan shows ascites which was tapped today and the pathologist called me a little while ago and told me that there are carcinoma cells evident in the ascitic fluid. They are going to be doing special stains to see if they can help localize the source. I did review the CAT scan films and there is no obvious tumor that I cannot discern. She did have a colonoscopy 3 years ago that had some adenomas removed and her brother of colon cancer. She has never had any abdominal surgery of any kind. Her liver tests and kidney tests are normal. She does report that she has been having some frequent urinary tract infections. Abdomen is distended and it is nontender. No masses are appreciated. IMPRESSION: The patient has malignant ascites with cancer cells present. PLAN: On continuing her bowel regimen and hopefully in the next day or two, she will be able to get cleaned out enough that she could have a colonoscopy and possibly upper endoscopy. I plan on checking a urine cytology, and will get tumor markers including a CEA, CA19-9 and CA125. The patient was informed of these findings along with her family members present in the room.
[2017-02-23] MEDS ORDERED: MILK AND MOLASSES ENEMA PR STA (16:58)
--- NOTE | 2017-02-23 17:21 | Progress Note ---
Medicine Progress Note Date & Time of Visit: Feb 23, 2017 at 16:57. Subjective NPO status Tried unsuccessfully to tolerate cranberry juice and Golytely last night which made her vomit profusely Denies nausea or vomiting at this time Reports some relief with the tap water enema from earlier. Pt is agreeable to milk and molasses enema tonight Reports a breast cancer history in her grandmother and colon cancer in her brother. Denies abdominal pain or need to urinate at this time Reports some worsening stress incontinence of urine as pressure has built in her lower abdomen. Objective Last 8 Hrs Date Time Temp Pulse Resp B/P (MAP) Pulse Ox O2 Delivery O2 Flow Rate FiO2 02/23/17 14:51 36.6 89 20 136/86 (103) 94 Room Air 02/23/17 11:45 36.9 90 20 129/75 (93) 96 Room Air 02/23/17 11:15 36.7 86 18 126/75 (92) 94 Room Air 02/23/17 10:45 36.7 85 18 125/76 (92) 95 02/23/17 10:15 36.8 82 20 120/76 (91) 98 02/23/17 10:00 36.7 90 20 119/78 (92) 92 Room Air Physical Exam: GEN: WNWD, in no acute distress, alert and appropriate HEENT: NC/AT, PERRL, normal sclerae CARDIO: reg rate, S1/2 heard without m/g/r LUNGS: CTA bilaterally, no crackles, rales or wheezes, good diaphragmatic excursion ABD: soft, protuberant, non-tender, non-distended, no rebound or guarding, +BS EXTREMITY: RP and DP palpable 2+ bilat, no LE swelling or edema, extremities are warm and well-perfused NEURO: CN 2-12 grossly intact. mentating well MUSC: 5/5 strength throughout, moves all extremities with ease SKIN: warm and dry Laboratory Results: 02/23/17 05:17 Red Blood Count 4.46, Mean Corpuscular Volume 93.7, Mean Corpuscular Hemoglobin 29.4, Mean Corpuscular Hemoglobin Concent 31.3, Mean Platelet Volume 9.1, Neutrophils (%) (Auto) 69.2, Lymphocytes (%) (Auto) 16.1, Monocytes (%) (Auto) 13.6, Eosinophils (%) (Auto) 0.7, Basophils (%) (Auto) 0.2, Neutrophils # (Auto ) 3.01, Lymphocytes # (Auto) 0.70, Monocytes # (Auto) 0.59, Eosinophils # (Auto ) 0.03, Basophils # (Auto) 0.01 02/23/17 05:17 Test 02/21/17 20:45 02/22/17 16:00 02/23/17 05:17 02/23/17 10:01 Direct Bilirubin 0.1 mg/dl (0-0.2) Lipase 128 U/L (73-393) Thyroid Stimulating Hormone (TSH) 3.630 uIu/ml (0.300-4.500) Urine Color DK YELLOW Urine Appearance CLOUDY (CLEAR) Urine pH 5.0 (4.5-7.5) Urine Specific [place] 1.026 (1.000-1.030) Urine Protein TRACE (NEG) Urine Glucose (UA) NEG (NEG) Urine Ketones 1+ (NEG) Urine Occult Blood NEG (NEG) Urine Nitrite NEG (NEG) Urine Bilirubin NEG (NEG) Urine Urobilinogen NEG (NEG) Urine Leukocyte Esterase NEG (NEG) Urine WBC (Auto) 10-30 /hpf (0-5) Urine RBC (Auto) 0-4 /hpf (0-4) Urine Hyaline Casts (Auto) 1-5 /lpf (0-5) Urine Epithelial Cells (Auto) >30 /lpf (0-5) Urine Bacteria (Auto) NEG (NEG) Urine Pathogenic Casts /lpf (0) White Blood Count 4.35 K/uL (4.8-10.8) Red Blood Count 4.46 M/uL (4.2-5.4) Hemoglobin 13.1 g/dL (12.0-16.0) Hematocrit 41.8 % (37-47) Mean Corpuscular Volume 93.7 fL (80-100) Mean Corpuscular Hemoglobin 29.4 pg (25-34) Mean Corpuscular Hemoglobin Concent 31.3 g/dl (32-36) Platelet Count 363 K/uL (130-400) Mean Platelet Volume 9.1 fL (7.4-10.4) Neutrophils (%) (Auto) 69.2 % Lymphocytes (%) (Auto) 16.1 % Monocytes (%) (Auto) 13.6 % Eosinophils (%) (Auto) 0.7 % Basophils (%) (Auto) 0.2 % Neutrophils # (Auto) 3.01 K/uL (1.4-6.5) Lymphocytes # (Auto) 0.70 K/uL (1.2-3.4) Monocytes # (Auto) 0.59 K/uL (0.11-0.59) Eosinophils # (Auto) 0.03 K/uL (0-0.5) Basophils # (Auto) 0.01 K/uL (0-0.2) RDW Standard Deviation 47.2 fL (36.4-46.3) RDW Coefficient of Variation 13.7 % (11.5-14.5) Immature Granulocyte % (Auto) 0.2 % Immature Granulocyte # (Auto) 0.01 K/uL (0.00-0.02) Prothrombin Time 10.8 SECONDS (9.0-12.0) Prothromb Time International Ratio 1.0 (0.9-1.1) Activated Partial Thromboplast Time 24.3 SECONDS (21.0-31.0) Partial Thromboplastin Ratio 0.9 Anion Gap 5.0 mmol/L (3-11) Est Creatinine Clear Calc Drug Dose 67.1 ml/min Estimated GFR () 77.7 Estimated GFR (Non- 67.0 BUN/Creatinine Ratio 9.5 (10-20) Calcium Level 8.2 mg/dl (8.5-10.1) Magnesium Level 2.0 mg/dl (1.8-2.4) Total Bilirubin 0.7 mg/dl (0.2-1) Aspartate Amino Transf (AST/SGOT) 15 U/L (15-37) Alanine Aminotransferase (ALT/SGPT) 15 U/L (12-78) Alkaline Phosphatase 64 U/L (45-117) Total Protein 6.4 gm/dl (6.4-8.2) Albumin 2.7 gm/dl (3.4-5.0) Globulin 3.7 gm/dl (2.5-4.0) Albumin/Globulin Ratio 0.7 (0.9-2) Hepatitis C Antibody Screen PRELIM POS (NEG) Peritoneal Fluid Color YELLOW Peritoneal Fluid Appearance CLOUDY Peritoneal Fluid WBC 846 /uL (0-300) Peritoneal Fluid RBC 3000 /uL Peritoneal Fld Mononuclear WBCs (%) 72.2 % Peritoneal Fld Polynuclear WBCs (%) 27.8 % Peritoneal Fluid Total Protein 5.6 g/dl Peritoneal Fluid Albumin 2.6 g/dl Peritoneal Fluid LDH 814 IU Peritoneal Fluid Glucose 85 mg/dl Peritoneal Fluid Amylase 41 U/L Peritoneal Fluid Lipase 58 U/L Peritoneal Fluid Triglycerides 37 mg/dl Test 02/23/17 15:30 Carcinoembryonic Antigen < 0.5 ng/ml (0-2.5) Date/Time Source Procedure Growth Status 02/23/17 10:01 Ascities Fluid Acid Fast Stain Pending Received 02/23/17 10:01 Ascities Fluid Mycobacterial Culture Pending Received Last 24 Hours Test 02/22/17 20:20 02/23/17 05:17 02/23/17 10:01 02/23/17 15:30 White Blood Count 8.14 K/uL 4.35 K/uL Red Blood Count 4.65 M/uL 4.46 M/uL Hemoglobin 14.1 g/dL 13.1 g/dL Hematocrit 43.3 % 41.8 % Mean Corpuscular Volume 93.1 fL 93.7 fL Mean Corpuscular Hemoglobin 30.3 pg 29.4 pg Mean Corpuscular Hemoglobin Concent 32.6 g/dl 31.3 g/dl Platelet Count 427 K/uL 363 K/uL Mean Platelet Volume 9.2 fL 9.1 fL Neutrophils (%) (Auto) 83.9 % 69.2 % Lymphocytes (%) (Auto) 8.2 % 16.1 % Monocytes (%) (Auto) 7.5 % 13.6 % Eosinophils (%) (Auto) 0.1 % 0.7 % Basophils (%) (Auto) 0.1 % 0.2 % Neutrophils # (Auto) 6.82 K/uL 3.01 K/uL Lymphocytes # (Auto) 0.67 K/uL 0.70 K/uL Monocytes # (Auto) 0.61 K/uL 0.59 K/uL Eosinophils # (Auto) 0.01 K/uL 0.03 K/uL Basophils # (Auto) 0.01 K/uL 0.01 K/uL RDW Standard Deviation 46.2 fL 47.2 fL RDW Coefficient of Variation 13.7 % 13.7 % Immature Granulocyte % (Auto) 0.2 % 0.2 % Immature Granulocyte # (Auto) 0.02 K/uL 0.01 K/uL Prothrombin Time 10.7 SECONDS 10.8 SECONDS Prothromb Time International Ratio 1.0 1.0 Activated Partial Thromboplast Time 21.9 SECONDS 24.3 SECONDS Partial Thromboplastin Ratio 0.8 0.9 Sodium Level 141 mmol/L Potassium Level 4.0 mmol/L Chloride Level 110 mmol/L Carbon Dioxide Level 26 mmol/L Anion Gap 5.0 mmol/L Blood Urea Nitrogen 8 mg/dl Creatinine 0.87 mg/dl Est Creatinine Clear Calc Drug Dose 67.1 ml/min Estimated GFR () 77.7 Estimated GFR (Non- 67.0 BUN/Creatinine Ratio 9.5 Random Glucose 127 mg/dl Calcium Level 8.2 mg/dl Magnesium Level 2.0 mg/dl Total Bilirubin 0.7 mg/dl Aspartate Amino Transf (AST/SGOT) 15 U/L Alanine Aminotransferase (ALT/SGPT) 15 U/L Alkaline Phosphatase 64 U/L Total Protein 6.4 gm/dl Albumin 2.7 gm/dl Globulin 3.7 gm/dl Albumin/Globulin Ratio 0.7 Hepatitis C Antibody Screen PRELIM POS Peritoneal Fluid Color YELLOW Peritoneal Fluid Appearance CLOUDY Peritoneal Fluid WBC 846 /uL Peritoneal Fluid RBC 3000 /uL Peritoneal Fld Mononuclear WBCs (%) 72.2 % Peritoneal Fld Polynuclear WBCs (%) 27.8 % Peritoneal Fluid Total Protein 5.6 g/dl Peritoneal Fluid Albumin 2.6 g/dl Peritoneal Fluid LDH 814 IU Peritoneal Fluid Glucose 85 mg/dl Peritoneal Fluid Amylase 41 U/L Peritoneal Fluid Lipase 58 U/L Peritoneal Fluid Triglycerides 37 mg/dl Carcinoembryonic Antigen < 0.5 ng/ml Date/Time Source Procedure Growth Status 02/23/17 10:01 Ascities Fluid Acid Fast Stain Pending Received 02/23/17 10:01 Ascities Fluid Mycobacterial Culture Pending Received 02/23/17 10:01 Ascities Fluid Gram Stain - Final Resulted 02/23/17 10:01 Ascities Fluid Bacterial Culture Pending Resulted Assessment & Plan 71 yo F with worsening bloating and obstipation x 2 months, now intolerant of PO as a result. 1. Obstipation: etiologies include but are not limited to dietary changes, motility disorder or malignancy. Golytely prep was unsuccessful despite NGT. Barnes catheter was also placed overnight with min urine output and Urology aware and has discontinued this. Per nurse, she felt as if there was something restricting proper placement. Patient also feels as though her stress incontinence has worsened as a result of the bloating that has continued to increase. A proximal sigmoid thickening was seen on the CT scan, which is an area of known diverticulosis but no evidence of diverticulitis is present. GI considering colonoscopy. Tap water enemas have been only slightly successful and she is willing to do a milk an molasses one. Will perform this now to help make her more comfortable. Will pursue pelvic ultrasound to start as CT a/p didn't find anything but this was also performed without any contrast. GI team has ordered tumor markers, which will take a few days to return. Paracentesis was performed today revealing no infectious cells, however, cytology is pending. enema and pelvic us for tonight. Cont NPO with ice chips for comfort and maintenance IVF. 2. Asymptomatic R ureteral stone with right hydronephrosis seen on imaging. No h/o nephrolithiasis but has new concerns for constipation and poss malignancy. No symptoms of flank pain or gross hematuria present and no microscopic hematuria on dipstick. Urology has been consulted. 3. Hypothyroidism-TSH is normal. Cont Synthroid replacement via IV as patient is not tolerating PO. DVT prophylaxis: Lovenox Full Code Dispo: cannot return home until tolerating PO. Cont with workup for malignancy as a cause of obstipation and cont with enema and other supportive care to get her bowels moving. Expect to return home when medically stable. Re Appiah DO [facility] Hospitalist Consultants: GI, Urology Current Inpatient Medications: Current Inpatient Medications Medications (Trade) Dose Ordered Sig/Rose Route Start Time Stop Time Status Last Admin Dose Admin Lactulose (Chronulac Syrup) 30 gm TID PRN PO 02/21/17 22:15 03/23/17 22:14 02/22/17 08:39 30 GM Ondansetron HCl (Zofran Inj) 4 mg Q6H PRN IV 02/21/17 22:30 03/23/17 22:29 02/22/17 18:03 4 MG Ketorolac Tromethamine (Toradol Inj) 15 mg Q6H PRN IV 02/21/17 22:30 02/26/17 22:29 02/22/17 06:07 15 MG Pantoprazole Sodium 40 mg/ Syringe 10 ml @ 5 mls/min DAILY@11 IV 02/22/17 11:00 03/24/17 10:59 02/23/17 10:09 5 MLS/MIN Levothyroxine Sodium 25 mcg/ Syringe 1.25 ml @ 2 mls/min DAILY@09 IV 02/22/17 09:00 03/24/17 08:59 02/23/17 10:09 2 MLS/MIN Dextrose/Sodium Chloride 1,000 ml @ 125 mls/hr Q8H IV 02/22/17 10:45 03/24/17 10:44 02/23/17 15:32 125 MLS/HR Senna (Senokot Tab) 8.6 mg BID PO 02/22/17 20:00 03/24/17 19:59 02/23/17 11:23 8.6 MG Metoclopramide HCl (Reglan Inj) 10 mg Q6H PRN IV 02/22/17 14:00 03/24/17 13:59 Miscellaneous (Tap Water Enema) [address] 02/22/17 20:00 03/24/17 19:59 02/23/17 11:23 1 EA Enoxaparin Sodium (Lovenox Inj) 30 mg Q12H SQ 02/23/17 18:00 03/25/17 17:59
--- NOTE | 2017-02-23 18:18 | Urology Consultation ---
History General Date of Service: Feb 23, 2017. Chief Complaint: right hydronephrosis Primary Care Physician: Geena Watts D.O. Pt seen a urologist before?: No History of Present Illness I am asked by Dr Stanton to evaluate and treat patient for right hydronephrosis. She is admitted with obstipation and ascites. Her admission CT shows abdominal ascites small thin walled bladder, normal left kidney and mild right hydroureteronephrosis. She has had 2 months of constipation and thin stools which is a dramatic change in caliber to her. She has had bloating and a pelvic heaviness. She has tried miralax and enemas at home with no results. No blood in BMs, No vaginal bleeding, no gross hematuria. Is up to date on mammos this years, pap and pelvis 3 yrs ago and colonoscopy in 2013 with finding of a few polyps. She has not had weight loss or gain in last few months. No right flank pain. + poor appetite. Imaging Imaging: CT Laboratory Results Past 24 Hours Test 02/22/17 20:20 02/23/17 05:17 02/23/17 10:01 02/23/17 15:30 Range/Units White Blood Count 8.14 4.35 4.8-10.8 K/uL Red Blood Count 4.65 4.46 4.2-5.4 M/uL Hemoglobin 14.1 13.1 12.0-16.0 g/dL Hematocrit 43.3 41.8 37-47 % Mean Corpuscular Volume 93.1 93.7 80-100 fL Mean Corpuscular Hemoglobin 30.3 29.4 25-34 pg Mean Corpuscular Hemoglobin Concent 32.6 31.3 32-36 g/dl Platelet Count 427 363 130-400 K/uL Mean Platelet Volume 9.2 9.1 7.4-10.4 fL Neutrophils (%) (Auto) 83.9 69.2 % Lymphocytes (%) (Auto) 8.2 16.1 % Monocytes (%) (Auto) 7.5 13.6 % Eosinophils (%) (Auto) 0.1 0.7 % Basophils (%) (Auto) 0.1 0.2 % Neutrophils # (Auto) 6.82 3.01 1.4-6.5 K/uL Lymphocytes # (Auto) 0.67 0.70 1.2-3.4 K/uL Monocytes # (Auto) 0.61 0.59 0.11-0.59 K/uL Eosinophils # (Auto) 0.01 0.03 0-0.5 K/uL Basophils # (Auto) 0.01 0.01 0-0.2 K/uL RDW Standard Deviation 46.2 47.2 36.4-46.3 fL RDW Coefficient of Variation 13.7 13.7 11.5-14.5 % Immature Granulocyte % (Auto) 0.2 0.2 % Immature Granulocyte # (Auto) 0.02 0.01 0.00-0.02 K/uL Prothrombin Time 10.7 10.8 9.0-12.0 SECONDS Prothromb Time International Ratio 1.0 1.0 0.9-1.1 Activated Partial Thromboplast Time 21.9 24.3 21.0-31.0 SECONDS Partial Thromboplastin Ratio 0.8 0.9 Sodium Level 141 136-145 mmol/L Potassium Level 4.0 3.5-5.1 mmol/L Chloride Level 110 98-107 mmol/L Carbon Dioxide Level 26 21-32 mmol/L Anion Gap 5.0 3-11 mmol/L Blood Urea Nitrogen 8 7-18 mg/dl Creatinine 0.87 0.60-1.20 mg/dl Est Creatinine Clear Calc Drug Dose 67.1 ml/min Estimated GFR () 77.7 Estimated GFR (Non- 67.0 BUN/Creatinine Ratio 9.5 10-20 Random Glucose 127 70-99 mg/dl Calcium Level 8.2 8.5-10.1 mg/dl Magnesium Level 2.0 1.8-2.4 mg/dl Total Bilirubin 0.7 0.2-1 mg/dl Aspartate Amino Transf (AST/SGOT) 15 15-37 U/L Alanine Aminotransferase (ALT/SGPT) 15 12-78 U/L Alkaline Phosphatase 64 45-117 U/L Total Protein 6.4 6.4-8.2 gm/dl Albumin 2.7 3.4-5.0 gm/dl Globulin 3.7 2.5-4.0 gm/dl Albumin/Globulin Ratio 0.7 0.9-2 Hepatitis C Antibody Screen PRELIM POS NEG Peritoneal Fluid Color YELLOW Peritoneal Fluid Appearance CLOUDY Peritoneal Fluid WBC 846 0-300 /uL Peritoneal Fluid RBC 3000 /uL Peritoneal Fld Mononuclear WBCs (%) 72.2 % Peritoneal Fld Polynuclear WBCs (%) 27.8 % Peritoneal Fluid Total Protein 5.6 g/dl Peritoneal Fluid Albumin 2.6 g/dl Peritoneal Fluid LDH 814 IU Peritoneal Fluid Glucose 85 mg/dl Peritoneal Fluid Amylase 41 U/L Peritoneal Fluid Lipase 58 U/L Peritoneal Fluid Triglycerides 37 mg/dl Carcinoembryonic Antigen < 0.5 0-2.5 ng/ml Microbiology Results 02/23/17 Acid Fast Stain, Received Pending 02/23/17 Mycobacterial Culture, Received Pending 02/23/17 Gram Stain - Final, Resulted 02/23/17 Bacterial Culture, Resulted Pending Labs were reviewed and are within normal limits unless listed below. Labs are available in the chart and at [facility] Problem List Medical Problems: (1) Ascitic fluid Status: Acute (2) Change in bowel movement Status: Acute (3) Colitis Status: Acute (4) Constipated Status: Acute (5) Nausea & vomiting Status: Acute Past History diverticulitis Past Surgical History: no surgical history Family History No significant family history brother at age 70 from colon cancer mere 6 months after diagnosis. mother age 93 father of AL and DM and untreated cholelithiasis age 53 Social History Hx Tobacco Use In Past Year?: No Smoking: non-smoker Alcohol: never Drug use: none Marital status: Housing status: lives with family Occupation status: retired History of MDRO No Allergies Coded Allergies: No Known Allergies (Unverified , 02/21/17) Medications Home Medications: Home Meds and Scripts Medications Dose Route/Sig Max Daily Dose Days Date Category Caltrate 600 (Calcium Carbonate) 1,500 Mg Tab 1 Tab PO BID 02/21/17 Reported Osteo Bi-Flex Advanced [facility]) 1 Tab Tab 2 Tabs PO DAILY 02/21/17 Reported Aspirin Ec (Aspirin) 81 Mg Tab 81 Mg PO TW 02/21/17 Reported Vitamin D3 (Cholecalciferol) 2,000 Unit Cap 1 Cap PO DAILY 30 02/21/17 Reported Levothyroxine Sodium 100 Mcg Tab 1 Tab PO DAILY 30 02/21/17 Reported Protonix (Pantoprazole Sodium) 40 Mg Tab 40 Mg PO DAILY 02/21/17 Reported Zofran Odt (Ondansetron) 4 Mg Tab 1-2 Tabs SL Q6H PRN 02/08/15 Rx Inpatient Medications: Current Inpatient Medications Medications (Trade) Dose Ordered Sig/Rose Route Start Time Stop Time Status Last Admin Dose Admin Lactulose (Chronulac Syrup) 30 gm TID PRN PO 02/21/17 22:15 03/23/17 22:14 02/22/17 08:39 30 GM Ondansetron HCl (Zofran Inj) 4 mg Q6H PRN IV 02/21/17 22:30 03/23/17 22:29 02/22/17 18:03 4 MG Ketorolac Tromethamine (Toradol Inj) 15 mg Q6H PRN IV 02/21/17 22:30 02/26/17 22:29 02/22/17 06:07 15 MG Pantoprazole Sodium 40 mg/ Syringe 10 ml @ 5 mls/min DAILY@11 IV 02/22/17 11:00 03/24/17 10:59 02/23/17 10:09 5 MLS/MIN Levothyroxine Sodium 25 mcg/ Syringe 1.25 ml @ 2 mls/min DAILY@09 IV 02/22/17 09:00 03/24/17 08:59 02/23/17 10:09 2 MLS/MIN Dextrose/Sodium Chloride 1,000 ml @ 125 mls/hr Q8H IV 02/22/17 10:45 03/24/17 10:44 02/23/17 15:32 125 MLS/HR Senna (Senokot Tab) 8.6 mg BID PO 02/22/17 20:00 03/24/17 19:59 02/23/17 11:23 8.6 MG Metoclopramide HCl (Reglan Inj) 10 mg Q6H PRN IV 02/22/17 14:00 03/24/17 13:59 Miscellaneous (Tap Water Enema) 1 ea BID HI 02/22/17 20:00 03/24/17 19:59 02/23/17 11:23 1 EA Enoxaparin Sodium (Lovenox Inj) 30 mg Q12H SQ 02/23/17 18:00 03/25/17 17:59 Review of Systems Review of Systems Constitutional: No fever, No weight loss Neurological: No dizzy, No passing out Endocrine: + tired/sluggish, No excessive thirst Gastrointestinal: + abdominal pain, + indigestion, + nausea, + vomiting, + constipation Cardiovascular: + swelling ankles/feet, No chest pain, No palpitations Respiratory: No shortness of breath, No coughing up blood, No chronic cough Skin: No rash Female : + frequent urination, + leaking urine, + vaginal discharge (with odor) Physical Exam Vital Signs: Vital Signs Past 12 Hours Date Time Temp Pulse Resp B/P (MAP) Pulse Ox O2 Delivery O2 Flow Rate FiO2 02/23/17 14:51 36.6 89 20 136/86 (103) 94 Room Air 02/23/17 11:45 36.9 90 20 129/75 (93) 96 Room Air 02/23/17 11:15 36.7 86 18 126/75 (92) 94 Room Air 02/23/17 10:45 36.7 85 18 125/76 (92) 95 02/23/17 10:15 36.8 82 20 120/76 (91) 98 02/23/17 10:00 36.7 90 20 119/78 (92) 92 Room Air 02/23/17 08:00 Room Air 02/23/17 07:08 36.7 95 18 128/81 (97) 93 Room Air Physical Exam: General Appearance: WD/WN, no apparent distress, + obese Eyes: bilateral eyes normal inspection ENT: hearing grossly normal Neck: supple, no adenopathy, no JVD, trachea midline Respiratory/Chest: normal breath sounds, no respiratory distress Gastrointestinal: Abdomen: pertinent finding (tense with fluid bishnu in lower abdomen. , no rebound no guarding, no palpable mass) Genitourinary - Female: External Genitalia: normal external genitalia Urethral Meatus: normal urethral meatus Urethra: normal urethra Bladder: normal bladder, pertinent finding (bladder base is soft. There is tense fluid on the anterior abdomen which limits palpation anteriorly for the bimanual. ) Vagina: normal vagina Cervix: normal cervix Adnexa: pertinent finding (fullness in right hemipelvis but no distinct mass palpable, no stool palpated posteriorly. ) Extremities: non-tender, normal inspection, no pedal edema, no calf tenderness Neurologic/Psychiatric: alert, normal mood/affect, oriented x 3 Skin: normal color, warm/dry, no rash Lymphatic: no adenopathy Assessment & Plan Assessment & Plan right hydronephrosis only mildly worse than her CT in 2015. No symptoms of colic so I do not suspect ureteral stone causing any obstruction at this time. I am more concerned this is malignant obstruction. Creatinine is fine and no gross hematuria so no intervention planned at this time Pt says she was told her paracentesis specimen had malignant cells. SHe is awaiting final report. Will follow.
[2017-02-23] MEDS: ENOXAPARIN 30 MG/0.3 ML SYR SQ SCH (18:34)
--- NOTE | 2017-02-23 22:51 | DIAGNOSTIC IMAGING REPORT ---
PELVIC ULTRASOUND, TRANSABDOMINAL AND TRANSVAGINAL HISTORY: 2 months of bloating and weight gain, obstipation, COMPARISON: Abdomen and pelvis CT 02/21/2017. FINDINGS: Uterus: 4.8 x 2.3 x 4.0 cm. Slightly heterogeneous echotexture. No definite uterine masses. Small amount of fluid within the cervix. Endometrial stripe: Not well visualized but appears to measure approximate 3 mm in thickness. Right ovary: Not identified. Left ovary: Not identified. Miscellaneous:Moderate ascites is again noted. IMPRESSION: 1. Difficult evaluation of the pelvis due to the moderate ascites. 2. Heterogeneous uterus without definite mass. 3. Small amount of fluid within the cervix. 4. The ovaries were not identified. Electronically signed by: Tye Serrano M.D. 02/23/2017 10:49 PM Dictated Date/Time: 02/23/2017 10:47 PM
[2017-02-24 06:32] LABS: BASO % 0.2 %; BASO ABS # 0.01 K/uL (0-0.2); COMPLETE YES; HEMATOCRIT 39.6 % (37-47); IG% 0.2 %; LYMPH % 34.8 %; LYMPH ABS # 1.55 K/uL (1.2-3.4); MEAN CELL VOLUME 94.5 fL (80-100); MEAN CORPUSCULAR HEMOGLOBIN 29.8 pg (25-34); MEAN CORPUSCULAR HGB CONC 31.6 g/dl (32-36); MONO % 13.2 %; NEUT % 49.6 %; PLATELET COUNT 257 K/uL (130-400); RED BLOOD COUNT 4.19 M/uL (4.2-5.4); WHITE BLOOD COUNT 4.46 K/uL (4.8-10.8)
[2017-02-24] MEDS: ENOXAPARIN 30 MG/0.3 ML SYR SQ SCH ×2 (06:34→17:31)
[2017-02-24 07:02] LABS: BUN/CREATININE RATIO 9.6 (10-20); CALCIUM 8.4 mg/dl (8.5-10.1); CREATININE 0.74 mg/dl (0.60-1.20); MAGNESIUM 1.9 mg/dl (1.8-2.4); POTASSIUM 3.5 mmol/L (3.5-5.1)
[2017-02-24 07:22] VITALS: BP 130/78; PULSE 89; TEMP 36.7; O2SAT 92
[2017-02-24 08:00] VITALS: O2SAT 92
[2017-02-24] MEDS: D5W AND NSS 1,000 ML IV SCH ×3 (09:02→23:24)
[2017-02-24] MEDS: SENNA 8.6 MG TAB PO SCH ×2 (09:02→19:44)
[2017-02-24] MEDS: TAP WATER ENEMA PR SCH ×2 (09:02→19:43)
[2017-02-24] MEDS: LEVOTHYROXINE SODIUM INJ 25 MCG in SYRINGE 0 ML IV SCH (09:03)
[2017-02-24] MEDS: PANTOprazole INJ 40 MG in SYRINGE 0 ML IV SCH (10:57)
[2017-02-24 15:04] VITALS: BP 132/83; PULSE 87; TEMP 36.6; O2SAT 91
[2017-02-24 16:00] VITALS: O2SAT 91
--- NOTE | 2017-02-24 17:13 | Progress Note ---
Internal Med Progress Note Date of Service: Feb 24, 2017. Provider Documentation: SUBJECTIVE: The patient was seen and examined Feeling a little better Denies any complaints OBJECTIVE: Vital Signs-as noted below Exam: General-NO distress at rest Eyes-normal ENT-normal Neck-supple Lungs-Clear to auscultate bilaterally Heart-Regular,no murmur Abdomen-Benign,no masses,bowel sound present Extremities-Trace edema bilaterally Neuro-AAOx3 Lab data as noted below. ASSESSMENT & PLAN: 71 yo F with worsening bloating and obstipation x 2 months, now intolerant of PO as a result. Obstipation: Differential includes but not limited to Dietary indiscretion,inactivity, motility disorder or malignancy. Appreciate GI input S/P paracentesis-Ascitic fluid suspected to be Malignant CT-proximal thickening of Sigmoid colon Pelvic US:1. Difficult evaluation of the pelvis due to the moderate ascites.2. Heterogeneous uterus without definite mass. 3. Small amount of fluid within the cervix.4. The ovaries were not identified. Colon preparation is ongoing for possible colonoscopy Await tumor markers Right Hydronephrosis Asymptomatic R ureteral stone with right hydronephrosis seen on imaging. No h/o nephrolithiasis but has new concerns for constipation and poss malignancy. No symptoms of flank pain or gross hematuria present and no microscopic hematuria on dipstick. Urology has been consulted-appreciate input. Hypothyroidism-TSH is normal. Cont Synthroid replacement via IV as patient is not tolerating PO. DVT prophylaxis: Lovenox Full Code Dispo: cannot return home until tolerating PO. Vital Signs: Date Time Temp Pulse Resp B/P (MAP) Pulse Ox O2 Delivery O2 Flow Rate FiO2 02/24/17 16:00 91 Room Air 02/24/17 15:04 36.6 87 18 132/83 (99) 91 Room Air 02/24/17 08:00 92 Room Air 02/24/17 07:22 36.7 89 18 130/78 (95) 92 Room Air 02/24/17 00:00 Room Air 02/23/17 23:55 37.0 97 16 119/75 (90) 95 Room Air Lab Results: Results Past 24 Hours Test 02/24/17 06:09 Range/Units White Blood Count 4.46 4.8-10.8 K/uL Red Blood Count 4.19 4.2-5.4 M/uL Hemoglobin 12.5 12.0-16.0 g/dL Hematocrit 39.6 37-47 % Mean Corpuscular Volume 94.5 80-100 fL Mean Corpuscular Hemoglobin 29.8 25-34 pg Mean Corpuscular Hemoglobin Concent 31.6 32-36 g/dl Platelet Count 257 130-400 K/uL Mean Platelet Volume 9.0 7.4-10.4 fL Neutrophils (%) (Auto) 49.6 % Lymphocytes (%) (Auto) 34.8 % Monocytes (%) (Auto) 13.2 % Eosinophils (%) (Auto) 2.0 % Basophils (%) (Auto) 0.2 % Neutrophils # (Auto) 2.21 1.4-6.5 K/uL Lymphocytes # (Auto) 1.55 1.2-3.4 K/uL Monocytes # (Auto) 0.59 0.11-0.59 K/uL Eosinophils # (Auto) 0.09 0-0.5 K/uL Basophils # (Auto) 0.01 0-0.2 K/uL RDW Standard Deviation 48.3 36.4-46.3 fL RDW Coefficient of Variation 13.9 11.5-14.5 % Immature Granulocyte % (Auto) 0.2 % Immature Granulocyte # (Auto) 0.01 0.00-0.02 K/uL Sodium Level 143 136-145 mmol/L Potassium Level 3.5 3.5-5.1 mmol/L Chloride Level 114 98-107 mmol/L Carbon Dioxide Level 23 21-32 mmol/L Anion Gap 6.0 3-11 mmol/L Blood Urea Nitrogen 7 7-18 mg/dl Creatinine 0.74 0.60-1.20 mg/dl Est Creatinine Clear Calc Drug Dose 78.9 ml/min Estimated GFR () 94.5 Estimated GFR (Non- 81.5 BUN/Creatinine Ratio 9.6 10-20 Random Glucose 100 70-99 mg/dl Calcium Level 8.4 8.5-10.1 mg/dl Magnesium Level 1.9 1.8-2.4 mg/dl
--- NOTE | 2017-02-24 17:59 | GASTROENTEROLOGY PROGRESS NOTE ---
DATE: 02/24/2017 SUBJECTIVE: Chart reviewed. The patient feels that she has had some mild stool output with the current regimen. This includes senna, Fleets enemas, milk of molasses enema. She has not had any vomiting or abdominal pain but does feel wheeze when that can either be in the upper or lower abdomen. There is no blood in the stool. VITAL SIGNS: The patient is afebrile 36.6, blood pressure 132/83, respirations 18, heart rate 87 room and 91% on room air. LABORATORY STUDIES: Show white count at 4.4, today hemoglobin 12.1 and overall stable, although slight trend downward, platelets 257,000. There were 846 white blood cells on paracentesis and 3000 red blood cells. Amylase was 41, LDH 814. Hepatitis C antibody shows a preliminarily positive status and this will require confirmatory testing with HCV RNA. BUN and creatinine are 7 and 0.7. Calcium level is 8.4, although likely acceptable for diminished albumin at 2.7. CA 19-9 and 125 are pending. CEA is less than 0.5. TSH is normal at 3.6. REVIEW OF SYSTEMS: Otherwise noncontributory. MEDICATIONS: Reviewed and include lactulose, Ketorolac, Zofran, levothyroxine, pantoprazole injection, Reglan, senna and Lovenox. PHYSICAL EXAMINATION: GENERAL: The patient is awake, alert and oriented x3 and accompanied by a family member, sitting in chair comfortably. HEART: Normal S1, S2. LUNGS: Clear to auscultation. ABDOMEN: Soft, nontender, nondistended, without rebound or guarding. There are positive bowel sounds. EXTREMITIES: Without edema. RECTAL: Deferred at this time. IMPRESSION AND PLAN: The patient with report of malignant ascites, although conformation is pending for this preliminary finding. There is a preliminary positive hepatitis C antibody, although imaging studies from February 21 showed mild right renal hydronephrosis, possibly a 3 mm obstructing calculi in the distal right ureter, moderate wall thickening of the proximal sigmoid colon and gallstones, however mention of the liver is not made. The liver does have a slightly scalloped appearance with ascites surrounding it. At this point, we will need to continue bowel regimen in order to cleanse the colon and permit upper endoscopy and colonoscopy. I would recommend obtaining hepatitis C quantitative RNA to confirm if hepatitis C infection is present, although biochemically, the patient has a normal platelet count. At some point colonoscopy will be necessary and would favor continued enemas including minimal oil enema, Fleets enema and tap water enemas to help dislodge and permit proximal bowel cleansing. Oncology evaluation recommended. Will follow with you. FANTASMA
[2017-02-24] MEDS: KETOROLAC TROMETHAMINE 15 MG/ML VIAL IV PRN (19:51)
[2017-02-25 00:16] VITALS: BP 124/79; PULSE 85; TEMP 37.3; O2SAT 90
[2017-02-25] MEDS: ONDANSETRON INJ 2 MG/ML 2 ML VIAL IV PRN (05:26)
[2017-02-25] MEDS: ENOXAPARIN 30 MG/0.3 ML SYR SQ SCH ×2 (05:27→18:53)
[2017-02-25 06:10] LABS: COMPLETE YES; HEMATOCRIT 41.7 % (37-47); IG% 0.2 %; LYMPH ABS # 1.19 K/uL (1.2-3.4); MEAN CELL VOLUME 94.3 fL (80-100); MEAN CORPUSCULAR HEMOGLOBIN 29.6 pg (25-34); MEAN CORPUSCULAR HGB CONC 31.4 g/dl (32-36); MEAN PLATELET VOLUME 9.3 fL (7.4-10.4); NEUT % 59.8 %; PLATELET COUNT 278 K/uL (130-400); RED BLOOD COUNT 4.42 M/uL (4.2-5.4); WHITE BLOOD COUNT 4.57 K/uL (4.8-10.8)
[2017-02-25 06:42] LABS: BUN/CREATININE RATIO 10.4 (10-20); CALCIUM 8.6 mg/dl (8.5-10.1); CREATININE 0.7 mg/dl (0.60-1.20); MAGNESIUM 1.9 mg/dl (1.8-2.4); POTASSIUM 3.3 mmol/L (3.5-5.1)
[2017-02-25] MEDS: D5W AND NSS 1,000 ML IV SCH ×3 (07:06→23:44)
[2017-02-25] MEDS: TAP WATER ENEMA PR SCH ×2 (07:07→20:08)
[2017-02-25] MEDS: SENNA 8.6 MG TAB PO SCH ×2 (07:07→20:08)
[2017-02-25 07:13] VITALS: BP 127/83; PULSE 98; TEMP 37.1; O2SAT 91
[2017-02-25] MEDS: KETOROLAC TROMETHAMINE 15 MG/ML VIAL IV PRN (07:21)
[2017-02-25 08:00] VITALS: O2SAT 92
[2017-02-25] MEDS: LEVOTHYROXINE SODIUM INJ 25 MCG in SYRINGE 0 ML IV SCH (09:23)
[2017-02-25] MEDS: PANTOprazole INJ 40 MG in SYRINGE 0 ML IV SCH (10:42)
[2017-02-25 14:56] VITALS: BP 135/81; PULSE 94; TEMP 36.9; O2SAT 92
[2017-02-25 16:00] VITALS: O2SAT 92
--- NOTE | 2017-02-25 16:13 | Progress Note ---
Internal Med Progress Note Date of Service: Feb 25, 2017. Provider Documentation: SUBJECTIVE: The patient was seen and examined Feeling a little better Abdomen distended Bowel moved this AM OBJECTIVE: Vital Signs-as noted below Exam: General-Moderate distress at rest Very anxious Eyes-normal ENT-normal Neck-supple Lungs-Clear to auscultate bilaterally Heart-Regular,no murmur Abdomen-Benign,no masses,bowel sound present Distended,soft and lildly tender Extremities-Trace edema bilaterally Neuro-AAOx3 Lab data as noted below. ASSESSMENT & PLAN: 71 yo F with worsening bloating and obstipation x 2 months, now intolerant of PO as a result. 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 (analysis of Peritoneal Fluid) Ca 125 elevated Ascites and Abdominal distension is secondary Likely to need EXTERMINATION INSPECTOR-Oncology to take care of this problem Will discuss with the Patient and the Family members Obstipation: Differential includes but not limited to Dietary indiscretion,inactivity, motility disorder or malignancy. Appreciate GI input S/P paracentesis-Ascitic fluid suspected to be Malignant CT-proximal thickening of Sigmoid colon Pelvic US:1. Difficult evaluation of the pelvis due to the moderate ascites.2. Heterogeneous uterus without definite mass. 3. Small amount of fluid within the cervix.4. The ovaries were not identified. Colon preparation is ongoing for possible colonoscopy Await tumor markers -as above Right Hydronephrosis-Secondary to obstructive uropathy secondary to Ovarian/ Peritoneal tumor Asymptomatic R ureteral stone with right hydronephrosis seen on imaging. No h/o nephrolithiasis but has new concerns for constipation and poss malignancy. No symptoms of flank pain or gross hematuria present and no microscopic hematuria on dipstick. Urology has been consulted-appreciate input . Hypothyroidism-TSH is normal. Cont Synthroid replacement via IV as patient is not tolerating PO. DVT prophylaxis: Lovenox Full Code Dispo: cannot return home until tolerating PO. Likely to be transferred to [place]/discharge and follow up as an OP with EXTERMINATION INSPECTOR- Onc Vital Signs: Date Time Temp Pulse Resp B/P (MAP) Pulse Ox O2 Delivery O2 Flow Rate FiO2 02/25/17 14:56 36.9 94 18 135/81 (99) 92 Room Air 02/25/17 08:00 92 Room Air 02/25/17 07:13 37.1 98 18 127/83 (98) 91 Room Air 02/25/17 00:16 37.3 85 18 124/79 (94) 90 Room Air 02/24/17 23:15 Room Air Lab Results: Results Past 24 Hours Test 02/25/17 05:48 Range/Units White Blood Count 4.57 4.8-10.8 K/uL Red Blood Count 4.42 4.2-5.4 M/uL Hemoglobin 13.1 12.0-16.0 g/dL Hematocrit 41.7 37-47 % Mean Corpuscular Volume 94.3 80-100 fL Mean Corpuscular Hemoglobin 29.6 25-34 pg Mean Corpuscular Hemoglobin Concent 31.4 32-36 g/dl Platelet Count 278 130-400 K/uL Mean Platelet Volume 9.3 7.4-10.4 fL Neutrophils (%) (Auto) 59.8 % Lymphocytes (%) (Auto) 26.0 % Monocytes (%) (Auto) 12.0 % Eosinophils (%) (Auto) 2.0 % Basophils (%) (Auto) 0.0 % Neutrophils # (Auto) 2.73 1.4-6.5 K/uL Lymphocytes # (Auto) 1.19 1.2-3.4 K/uL Monocytes # (Auto) 0.55 0.11-0.59 K/uL Eosinophils # (Auto) 0.09 0-0.5 K/uL Basophils # (Auto) 0.00 0-0.2 K/uL RDW Standard Deviation 47.9 36.4-46.3 fL RDW Coefficient of Variation 13.9 11.5-14.5 % Immature Granulocyte % (Auto) 0.2 % Immature Granulocyte # (Auto) 0.01 0.00-0.02 K/uL Sodium Level 146 136-145 mmol/L Potassium Level 3.3 3.5-5.1 mmol/L Chloride Level 116 98-107 mmol/L Carbon Dioxide Level 22 21-32 mmol/L Anion Gap 8.0 3-11 mmol/L Blood Urea Nitrogen 7 7-18 mg/dl Creatinine 0.70 0.60-1.20 mg/dl Est Creatinine Clear Calc Drug Dose 83.4 ml/min Estimated GFR () 101.0 Estimated GFR (Non- 87.2 BUN/Creatinine Ratio 10.4 10-20 Random Glucose 109 70-99 mg/dl Calcium Level 8.6 8.5-10.1 mg/dl Magnesium Level 1.9 1.8-2.4 mg/dl
--- NOTE | 2017-02-25 21:00 | DIAGNOSTIC IMAGING REPORT ---
ABDOMEN 2 VIEWS CLINICAL HISTORY: assess for obstipation, obstruction pain COMPARISON STUDY: No previous studies for comparison. FINDINGS: Ileus versus distal partial small bowel obstructive change. Air-filled small bowel. No major distention. No secondary evidence for free air. Gallstones. IMPRESSION: Ileus versus partial distal small bowel obstructive change The above report was generated using voice recognition software. It may contain grammatical, syntax or spelling errors. Electronically signed by: Jamaal Pardo M.D. 02/25/2017 8:59 PM Dictated Date/Time: 02/25/2017 8:58 PM
[2017-02-25] MEDS ORDERED: POTASSIUM CHLORIDE 10 MEQ TABCR PO STA (21:26)
[2017-02-26] VITALS: BP 129/78; PULSE 85; TEMP 36.5; O2SAT 92
--- NOTE | 2017-02-26 00:17 | GASTROENTEROLOGY PROGRESS NOTE ---
DATE: 02/25/2017 The patient is sitting in the chair comfortably at the present time. She does, however, continue to experience waves of abdominal discomfort in the upper and lower abdomen. Over the last several days, there has been some stool output, although there remains a full feeling. Products including senna have been tried along with enemas with only a limited success. VITAL SIGNS: Today show a blood pressure 135/81, respirations 18, pulse 94, temperature 36.9 and 92% on room air. LABORATORY STUDIES: From today, show a white count at 4.57, platelets 278,000; hemoglobin 13.1 and this is stable. Serum chemistries today, potassium is low at 3.3, calcium level was normal at 8.6. Currently, the CA 19-9 is 16 and CEA is less than 0.5; however, CA-125 is elevated at 221. 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 An additional special stain is pending. MEDICATIONS: Were reviewed and include Lovenox, senna, pantoprazole, levothyroxine, Zofran, Toradol, lactulose. REVIEW OF SYSTEMS: Otherwise noncontributory by 13-point exam, except for mentioned above. There is no description of melena or bright red blood per rectum, hematemesis or coffee ground emesis. PHYSICAL EXAMINATION: GENERAL: The patient is awake, alert and oriented x3, sitting in the bed with her family accompanying her in the room. HEENT: Oral mucosa is moist. Sclerae are anicteric, conjunctivae moist. HEART: Normal S1, S2. LUNGS: Clear to auscultation. ABDOMEN: Protuberant with mild discomfort with palpation. There are bowel sounds noted. There is no rebound or guarding. EXTREMITIES: Without clubbing, cyanosis. There is trace edema. IMPRESSION AND PLAN: The patient with evidence of carcinomatosis, but likely reflects an ovarian origin, given the elevated CA-125 and the description on cytology from the paracentesis. She did have a colonoscopy a few years ago and I suspect this is an unlikely source for this. Ovarian cancer with metastases is the most likely diagnosis. Given that she has not had significant stool output consistently and that she remains bloated and at times, uncomfortable, I believe it is reasonable to obtain an abdominal series and will order this at this time. I would continue minimal oral intake as well as utilization of enemas to help cleanse the colon from below, mostly for symptomatic relief. At the present time, I do not believe that a colonoscopy or upper endoscopy would be beneficial or necessary, unless oncology prefers to have these areas of the GI tract excluded for primary sources. Future therapy will require a multidisciplinary approach, including oncology and possibly gynecology/surgery. We will continue with enema products from below and Senokot, which seems to be well tolerated by the patient. Await results of oncology's consultation. FANTASMA
[2017-02-26 02:00] VITALS: O2SAT 92
[2017-02-26 05:41] LABS: BASO % 0.3 %; BASO ABS # 0.01 K/uL (0-0.2); COMPLETE YES; EOS % 4.5 %; HEMATOCRIT 36.4 % (37-47); LYMPH % 32.2 %; LYMPH ABS # 1.01 K/uL (1.2-3.4); MEAN CELL VOLUME 93.3 fL (80-100); MEAN CORPUSCULAR HGB CONC 32.1 g/dl (32-36); MEAN PLATELET VOLUME 8.9 fL (7.4-10.4); MONO % 15.9 %; NEUT % 47.1 %; PLATELET COUNT 237 K/uL (130-400); WHITE BLOOD COUNT 3.14 K/uL (4.8-10.8)
[2017-02-26] MEDS: ENOXAPARIN 30 MG/0.3 ML SYR SQ SCH ×2 (05:54→17:57)
[2017-02-26 06:12] LABS: BUN/CREATININE RATIO 13.7 (10-20); CALCIUM 8.2 mg/dl (8.5-10.1); CREATININE 0.63 mg/dl (0.60-1.20); MAGNESIUM 1.8 mg/dl (1.8-2.4); POTASSIUM 3.6 mmol/L (3.5-5.1)
[2017-02-26 07:28] VITALS: BP 128/82; PULSE 90; TEMP 36.8; O2SAT 94
[2017-02-26] MEDS: D5W AND NSS 1,000 ML IV SCH ×2 (07:55→16:40)
[2017-02-26] MEDS: SENNA 8.6 MG TAB PO SCH ×2 (07:56→20:00)
[2017-02-26] MEDS: PANTOprazole INJ 40 MG in SYRINGE 0 ML IV SCH (08:54)
[2017-02-26] MEDS: LEVOTHYROXINE SODIUM INJ 25 MCG in SYRINGE 0 ML IV SCH (08:54)
[2017-02-26] MEDS: TAP WATER ENEMA PR SCH ×2 (11:30→20:00)
--- NOTE | 2017-02-26 14:02 | Progress Note ---
Internal Med Progress Note Date of Service: Feb 26, 2017. Provider Documentation: SUBJECTIVE: The patient was seen and examined Feeling a little better Abdomen distended Bowel is moving AXR-Ileus /Partial intestinal obstruction OBJECTIVE: Vital Signs-as noted below Exam: General-Minimal distress at rest OOB in a chair Very anxious Eyes-normal ENT-normal Neck-supple Lungs-Clear to auscultate bilaterally Heart-Regular,no murmur Abdomen-Benign,no masses,bowel sound present Distended,soft and mildly tender Extremities-Trace edema bilaterally Neuro-AAOx3 Lab data as noted below. ASSESSMENT & PLAN: 71 yo F with worsening bloating and obstipation x 2 months, now intolerant of PO as a result. 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 (analysis of Peritoneal Fluid) Ca 125 elevated Ascites and Abdominal distension is secondary Likely to need PARCEL WRAPPER-Oncology to take care of this problem Discussed with the Daughter and Son-explained possible next actions They will decide the place of their importance and I will try to facilitate that Obstipation: Differential includes but not limited to Dietary indiscretion,inactivity, motility disorder or malignancy. Appreciate GI input S/P paracentesis-Ascitic fluid suspected to be Malignant CT-proximal thickening of Sigmoid colon Pelvic US:1. Difficult evaluation of the pelvis due to the moderate ascites.2. Heterogeneous uterus without definite mass. 3. Small amount of fluid within the cervix.4. The ovaries were not identified. Colon preparation is ongoing for possible colonoscopy Await tumor markers -as above Bowel is moving and Intestinal obstruction is improving Right Hydronephrosis-Secondary to obstructive uropathy secondary to Ovarian/ Peritoneal tumor Asymptomatic R ureteral stone with right hydronephrosis seen on imaging. No h/o nephrolithiasis but has new concerns for constipation and poss malignancy. No symptoms of flank pain or gross hematuria present and no microscopic hematuria on dipstick. Urology has been consulted-appreciate input . Hypothyroidism-TSH is normal. Cont Synthroid replacement via IV as patient is not tolerating PO. DVT prophylaxis: Lovenox Full Code Dispo: cannot return home until tolerating PO. Discussed with the Daughter and the son Vital Signs: Date Time Temp Pulse Resp B/P (MAP) Pulse Ox O2 Delivery O2 Flow Rate FiO2 02/26/17 08:00 Room Air 02/26/17 07:28 36.8 90 18 128/82 (97) 94 Room Air 02/26/17 02:00 92 Room Air 02/26/17 00:00 36.5 85 20 129/78 (95) 92 Room Air 02/25/17 16:00 92 Room Air 02/25/17 14:56 36.9 94 18 135/81 (99) 92 Room Air Lab Results: Results Past 24 Hours Test 02/26/17 05:20 Range/Units White Blood Count 3.14 4.8-10.8 K/uL Red Blood Count 3.90 4.2-5.4 M/uL Hemoglobin 11.7 12.0-16.0 g/dL Hematocrit 36.4 37-47 % Mean Corpuscular Volume 93.3 80-100 fL Mean Corpuscular Hemoglobin 30.0 25-34 pg Mean Corpuscular Hemoglobin Concent 32.1 32-36 g/dl Platelet Count 237 130-400 K/uL Mean Platelet Volume 8.9 7.4-10.4 fL Neutrophils (%) (Auto) 47.1 % Lymphocytes (%) (Auto) 32.2 % Monocytes (%) (Auto) 15.9 % Eosinophils (%) (Auto) 4.5 % Basophils (%) (Auto) 0.3 % Neutrophils # (Auto) 1.48 1.4-6.5 K/uL Lymphocytes # (Auto) 1.01 1.2-3.4 K/uL Monocytes # (Auto) 0.50 0.11-0.59 K/uL Eosinophils # (Auto) 0.14 0-0.5 K/uL Basophils # (Auto) 0.01 0-0.2 K/uL RDW Standard Deviation 47.7 36.4-46.3 fL RDW Coefficient of Variation 14.0 11.5-14.5 % Immature Granulocyte % (Auto) 0.0 % Immature Granulocyte # (Auto) 0.00 0.00-0.02 K/uL Sodium Level 148 136-145 mmol/L Potassium Level 3.6 3.5-5.1 mmol/L Chloride Level 119 98-107 mmol/L Carbon Dioxide Level 23 21-32 mmol/L Anion Gap 6.0 3-11 mmol/L Blood Urea Nitrogen 9 7-18 mg/dl Creatinine 0.63 0.60-1.20 mg/dl Est Creatinine Clear Calc Drug Dose 92.6 ml/min Estimated GFR () 104.6 Estimated GFR (Non- 90.2 BUN/Creatinine Ratio 13.7 10-20 Random Glucose 99 70-99 mg/dl Calcium Level 8.2 8.5-10.1 mg/dl Magnesium Level 1.8 1.8-2.4 mg/dl
[2017-02-26 14:45] VITALS: BP 138/84; PULSE 91; TEMP 36.5; O2SAT 96
--- NOTE | 2017-02-26 16:37 | Discharge Summary ---
Discharge Summary Date of Service Feb 26, 2017. Discharge Summary Admission Date: Feb 21, 2017 at 21:54 Discharge Date: Feb 26, 2017 Discharge Disposition: Acute care facility ([facility] under care of Dr Grisel Medeiros) Principal Diagnosis: Mentastics Ovarian Cancer,Ascites,Ileus Secondary Diagnoses/Problems: Please see H&P and Hospital progress note Procedures: Paracentesis Consultations: GI, Urology Admission Information HPI (per Admitting provider): 71 year old female with history of hypothyroidism, HLD presenting with nausea x [address] Esquivel for Primary Care. 2 months prior to admission, patient started to experience constipation, producing only small and occasionally loose stools. At the end of January, patient was seen by her PCP, KUB done showed large amount of stools in the colon, and was given Miralax. Per patient, she has tried with Miralax and even one dose of enema this morning with not much improvement. Later this afternoon, patient drank water but apparently thew it up right after , and had more bilious vomiting. She then presented to the ER. CT abdomen: 1. Interval development of moderate abdominal and pelvic ascites. 2. Considerable increase in fecal load throughout the colon consistent with generalized fecal stasis. 3. Wall thickening and mild pericolonic infiltrative change of the proximal sigmoid raising the possibility of a nonspecific colitis. 4. Mild right renal hydroureteronephrosis most likely secondary to a small distal right ureteral calculus measuring 3 mm. 5. Gallstones. On my exam, patient seen laying in bed, comfortable. Has occasional diffuse abdominal discomfort. Denies weight loss, poor appetite, but reports decreased urine output. No other symptoms. Patient reports Colonoscopy done 2-[address] Pereira for screening, and revealed polyps. Past Medical/Surgical History Medical Problems: (1) Diverticulitis Status: Resolved Family History No significant family history Social History Smoking Status: Never Smoker Smokeless Tobacco Use: No Alcohol Use: none Drug Use: none Marital Status: Housing status: lives with family Occupational Status: retired Multi-Drug Resistant Organisms History of MDRO: No Allergies Coded Allergies: No Known Allergies (Unverified , 02/21/17) Home Medications Scheduled Aspirin (Aspirin Ec), 81 MG PO TW Calcium Carbonate (Caltrate 600), 1 TAB PO BID Cholecalciferol (Vitamin D3), 1 CAP PO DAILY Levothyroxine Sodium (Levothyroxine Sodium), 1 TAB PO DAILY Misc Natural Products (Osteo Bi-Flex Advanced Do), 2 TABS PO DAILY Pantoprazole (Protonix), 40 MG PO DAILY Scheduled PRN Ondansetron (Zofran Odt), 1-2 TABS SL Q6H PRN for Nausea Review of Systems Constitutional- no fever; no weight loss Eyes- no acute visual changes ENT- no sinus drainage; no pharyngitis Pulmonary- no cough, no wheezing, no shortness of breath Cardiac- no chest pain, no palpitations, no orthopnea, no dependent edema GI- (+) as noted above - no dysuria, no hematuria Musculoskeletal- no arthralgias, no myalgias Derm- no rashes, no new skin lesions, no changing skin lesions Hematologic- no unusual bruising, no unusual bleeding Lymphatics- no adenopathy Endocrine- no polyuria or polydipsia; no heat or cold intolerance Neuro- no headaches, no focal neurologic symptoms Psych- no anxiety, no depression Physical Exam Vital Signs Date Time Temp Pulse Resp B/P (MAP) Pulse Ox O2 Delivery O2 Flow Rate FiO2 02/21/17 23:27 36.8 95 18 149/84 (105) 95 Room Air 02/21/17 22:58 36.6 101 15 134/85 93 02/21/17 22:55 134/85 02/21/17 22:53 101 15 93 02/21/17 22:48 100 24 93 02/21/17 22:43 94 21 91 02/21/17 22:38 101 19 94 02/21/17 22:33 98 20 02/21/17 22:28 99 19 02/21/17 22:23 97 25 02/21/17 22:18 101 22 02/21/17 22:13 95 27 02/21/17 22:08 98 23 02/21/17 22:03 97 26 02/21/17 21:58 93 22 95 02/21/17 21:53 100 21 95 02/21/17 21:48 92 22 94 02/21/17 21:43 98 22 94 02/21/17 21:41 89 02/21/17 21:38 96 21 93 02/21/17 21:33 91 24 96 02/21/17 21:28 95 20 96 02/21/17 21:23 83 26 95 02/21/17 21:18 85 23 96 02/21/17 21:01 93 18 130/88 94 Room Air 02/21/17 21:01 130/88 02/21/17 20:14 36.6 104 20 134/86 97 Room Air General Appearance: WD/WN, no apparent distress Head: normocephalic, atraumatic Eyes: normal inspection, EOMI, sclerae normal ENT: normal ENT inspection, hearing grossly normal, pharynx normal Neck: supple, no adenopathy, thyroid normal, no JVD, trachea midline Respiratory/Chest: chest non-tender, lungs clear, normal breath sounds Cardiovascular: regular rate, rhythm, no edema, no JVD, no murmur Abdomen/GI: non tender, soft, + distended (mildly), + pertinent finding ( hypoactive bowel sounds) Back: normal inspection, no CVA tenderness Extremities/Musculoskelatal: normal inspection, no calf tenderness, no pedal edema Neurologic/Psych: intensivist II-XII nml as tested, no motor/sensory deficits, alert, normal mood/affect, oriented x 3 Skin: normal color, warm/dry, no rash Lymphatic: no adenopathy Diagnostics Laboratory Results Results Past 24 Hours Test 02/21/17 20:45 Range/Units White Blood Count 6.88 4.8-10.8 K/uL Red Blood Count 4.56 4.2-5.4 M/uL Hemoglobin 14.4 12.0-16.0 g/dL Hematocrit 41.3 37-47 % Mean Corpuscular Volume 90.6 80-100 fL Mean Corpuscular Hemoglobin 31.6 25-34 pg Mean Corpuscular Hemoglobin Concent 34.9 32-36 g/dl Platelet Count 392 130-400 K/uL Mean Platelet Volume 9.0 7.4-10.4 fL Neutrophils (%) (Auto) 76.4 % Lymphocytes (%) (Auto) 16.0 % Monocytes (%) (Auto) 6.0 % Eosinophils (%) (Auto) 1.2 % Basophils (%) (Auto) 0.3 % Neutrophils # (Auto) 5.26 1.4-6.5 K/uL Lymphocytes # (Auto) 1.10 1.2-3.4 K/uL Monocytes # (Auto) 0.41 0.11-0.59 K/uL Eosinophils # (Auto) 0.08 0-0.5 K/uL Basophils # (Auto) 0.02 0-0.2 K/uL RDW Standard Deviation 44.2 36.4-46.3 fL RDW Coefficient of Variation 13.3 11.5-14.5 % Immature Granulocyte % (Auto) 0.1 % Immature Granulocyte # (Auto) 0.01 0.00-0.02 K/uL Sodium Level 135 136-145 mmol/L Potassium Level 3.3 3.5-5.1 mmol/L Chloride Level 101 98-107 mmol/L Carbon Dioxide Level 25 21-32 mmol/L Anion Gap 9.0 3-11 mmol/L Blood Urea Nitrogen 8 7-18 mg/dl Creatinine 0.80 0.60-1.20 mg/dl Est Creatinine Clear Calc Drug Dose 72.9 ml/min Estimated GFR () 86.0 Estimated GFR (Non- 74.2 BUN/Creatinine Ratio 10.4 10-20 Random Glucose 100 70-99 mg/dl Calcium Level 9.7 8.5-10.1 mg/dl Magnesium Level 1.9 1.8-2.4 mg/dl Total Bilirubin 0.5 0.2-1 mg/dl Direct Bilirubin 0.1 0-0.2 mg/dl Aspartate Amino Transf (AST/SGOT) 22 15-37 U/L Alanine Aminotransferase (ALT/SGPT) 20 12-78 U/L Alkaline Phosphatase 76 45-117 U/L Total Protein 7.7 6.4-8.2 gm/dl Albumin 3.3 3.4-5.0 gm/dl Lipase 128 73-393 U/L Thyroid Stimulating Hormone (TSH) 3.630 0.300-4.500 uIu/ml Diagnostic Radiology per h&P Impression Assessment and Plan 71 year old female with history of hypothyroidism, HLD presenting with nausea x 1 day. CONSTIPATION, FECAL IMPACTION - check TSH - trial of Tap water enema, Lactulose - strict NPO D5 + NSS - GI consulted MODERATE ASCITES - liver panel normal - may need diagnostic paracentesis GI Consulted CHOLELITHIASIS - asymptomatic R URETERAL STONE 3MM WITH MILD RIGHT HYDRONEPHROSIS - will consult Urology PROXIMAL SIGMOID THICKENING - may need repeat Colonoscopy HYPOKALEMIA - IV K ordered - monitor DVT prophylaxis SCDs Full Code Dispo pending anticipate d/c home when medically stable, cleared by GI ff up with Dr. Boudreaux for PCP VTE Prophylaxis VTE Risk Assessment Done? Y/N: Yes Risk Level: Moderate Given or contraindicated: SCD's <Electronically signed by Manny Stanton MD> Physical Exam (per Admitting): General Appearance: WD/WN, no apparent distress Head: normocephalic, atraumatic Eyes: normal inspection, EOMI, sclerae normal ENT: normal ENT inspection, hearing grossly normal, pharynx normal Neck: supple, no adenopathy, thyroid normal, no JVD, trachea midline Respiratory/Chest: chest non-tender, lungs clear, normal breath sounds Cardiovascular: regular rate, rhythm, no edema, no JVD, no murmur Abdomen/GI: non tender, soft, + distended (mildly), + pertinent finding ( hypoactive bowel sounds) Back: normal inspection, no CVA tenderness Extremities/Musculoskelatal: normal inspection, no calf tenderness, no pedal edema Neurologic/Psych: intensivist II-XII nml as tested, no motor/sensory deficits, alert , normal mood/affect, oriented x 3 Skin: normal color, warm/dry, no rash Lymphatic: no adenopathy Hospital Course 71 yo F with worsening bloating and obstipation x 2 months, now intolerant of PO as a result. 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 (analysis of Peritoneal Fluid) Ca 125 elevated Ascites and Abdominal distension is secondary Likely to need QUALITY SYSTEMS ENGINEER-Oncology to take care of this problem Discussed with the Daughter and Son-explained possible next actions They will decide the place of their importance and I will try to facilitate that Discussed with DR Lynn at [facility] and the patient will be transferred to [place] Discussed with the Daughter ,Son and the patient and voiced the probable next management in [facility] Obstipation: Differential includes but not limited to Dietary indiscretion,inactivity, motility disorder or malignancy. Appreciate GI input S/P paracentesis-Ascitic fluid suspected to be Malignant CT-proximal thickening of Sigmoid colon Pelvic US:1. Difficult evaluation of the pelvis due to the moderate ascites.2. Heterogeneous uterus without definite mass. 3. Small amount of fluid within the cervix.4. The ovaries were not identified. Colon preparation is ongoing for possible colonoscopy Await tumor markers -as above Bowel is moving and Intestinal obstruction is improving Right Hydronephrosis-Secondary to obstructive uropathy secondary to Ovarian/ Peritoneal tumor Asymptomatic R ureteral stone with right hydronephrosis seen on imaging. No h/o nephrolithiasis but has new concerns for constipation and poss malignancy. No symptoms of flank pain or gross hematuria present and no microscopic hematuria on dipstick. Urology has been consulted-appreciate input Hypothyroidism-TSH is normal. Cont Synthroid replacement via IV as patient is not tolerating PO. DVT prophylaxis: Lovenox Full Code Dispo: cannot return home until tolerating PO. Discussed with the Daughter and the son [facility] Total time spent on discharge = This includes examination of the patient, discharge planning, medication reconciliation, and communication with other providers. Discharge Instructions All inpatient medications were continued Additional Copies To Geena Watts D.O.
[2017-02-26 18:01] VITALS: BP 138/84; PULSE 91; TEMP 36.5; O2SAT 96
--- NOTE | 2017-02-26 19:03 | Discharge Instructions ---
Discharge Instructions Date of Service Feb 26, 2017. Admission Reason for Admission: Abdominal Pain Discharge Discharge Diagnosis / Problem: Ovarian Cancer ,Ascites Discharge Goals Goal(s): Prevent Disease Progression Activity Recommendations Activity Limitations: resume your previous activity . Instructions / Follow-Up Instructions / Follow-Up Transferred to [facility] Current Hospital Diet Patient's current hospital diet: Clear Liquid Diet Discharge Diet Recommended Diet: Clear Liquid Diet Pending Studies Studies pending at discharge: yes List of pending studies: PERITONEAL FLUID (CYTOLOGIC ANALYSIS): 1. 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 2. A MUCICARMINE STAIN IS PENDING IN THIS CASE. 3. AN ADDENDUM WILL BE ISSUED. 4. PLEASE SEE ABOVE DISCUSSION. Medical Emergencies . Who to Call and When: Medical Emergencies: If at any time you feel your situation is an emergency, please call 911 immediately. . Non-Emergent Contact Non-Emergency issues call your: Primary Care Provider . Past History Medical & Surgical History: (1) Abdominal pain (2) Ascitic fluid (3) Constipated (4) Nausea & vomiting (5) Change in bowel movement (6) Diverticulitis . "Provider Documentation" section prepared by Salty Garcia. . VTE Core Measure Inpt VTE Proph given/why not?: Enoxaparin (Lovenox)SQ
--- NOTE | 2017-02-26 19:10 | GASTROENTEROLOGY PROGRESS NOTE ---
DATE: 02/26/2017 GASTROENTEROLOGY INPATIENT PROGRESS NOTE SUBJECTIVE: The patient reports that she has had more copious bowel movements today and has less abdominal discomfort and bloating compared to yesterday. She is beginning her clear liquid diet at this time. The patient's family was in the room and we addressed several issues regarding the new diagnosis and continued workup. LABORATORY STUDIES: Today show white count that is drifted down to 3.1 from 4.57 yesterday, platelet count of 237,000; hemoglobin has trended downward to 11.7, but there are no reports of description of overt bleeding from the gastrointestinal tract. Serum chemistry - BUN and creatinine are 9 and 0.6, potassium 3.6, calcium 8.2, magnesium level satisfactory 1.8. IMAGING STUDIES: Last night x-ray revealed an ileus versus partial distal small bowel obstructive changes. There was air in the small bowel. No major distention. There is no evidence for free air, gallstones are detected. There is no comment on stool in the colon. By my review, there is air throughout the small bowel and phleboliths in the pelvis. There is also a slight ground-glass appearance that suggests ascites. There may still be some stool burden in the right and left colons. REVIEW OF SYSTEMS: Otherwise noncontributory. PHYSICAL EXAMINATION: VITAL SIGNS: The patient is afebrile at 36.5, blood pressure 138/84, heart rate 91, room air 96%, respirations 20. HEART: Today, normal S1, S2. LUNGS: Clear to auscultation. ABDOMEN: Slightly tense and firm with positive bowel sounds. There is no tenderness to palpation. There is trace +1 edema bilaterally. RECTAL: Deferred. ASSESSMENT AND PLAN: I spoke with the patient and her daughter and for at least 20 minutes regarding continued workup and treatment. Again, there is evidence in the peritoneal fluid of adenocarcinoma that is consistent with ovarian cancer. This is corroborated with an elevated CA-125 with normal CEA and CA 19-9. Special stains also suggest that this is not of colonic origin. The patient did have a colonoscopy a few years ago which was unrevealing. I do not believe that additional gastrointestinal examination by upper endoscopy or colonoscopy is necessary at this time; however, if this is necessary for any further treatment plans, we can arrange this at the patient's convenience. I believe the management for this patient's malignant ascites, probable ovarian cancer warrants exam by oncology and perhaps gynecology/oncology to determine the best strategy moving forward. The patient was offered regional referral centers such as [facility] or [place]. Some of this may be determined by the patient's insurance coverage, but certainly it would be prudent to proceed with evaluation by oncology locally or transfer to a referral center for continued workup. Whether or not this needs neoadjuvant chemotherapy initially or a debulking procedure folowed , would be deferred to oncology and gynecology/ oncology. All of these details were discussed with the patient and family and all questions were answered. If necessary, we can attempt to identify the personnel officer at [place], if the patient and family desire to go there. Regarding the patient's bowel regimen, I would continue with clear liquids as tolerated and if there is more spontaneous bowel movements or those produced by enema these can be continued and perhaps either MiraLax, milk of Magnesia or mag citrate may be helpful to continue approaching the colon. The patient will require an outpatient bowel regimen to avoid obstipation. There is a question that the distal small-bowel may have partial obstruction and therefore it is prudent to use a low fiber diet. All questions answered. If you have any questions, please do not hesitate to contact our service. Will sign off at this time. Thank you for allowing us to participate in this patient's care. FANTASMA
== END 2017-02-26 21:22 | disposition short-term general hospital (02) | DRG 389 ==
LOC: C.EDB 20:11 → C.4E 21:54 → ENRESERV 22:20
PROVIDERS: ADMIT Internal Medicine; ATTEND Internal Medicine
PROC: 0W9G3ZX Drainage of Peritoneal Cavity, Percutaneous Approach, Diagnostic (ICD-10-PCS; principal; 2017-02-23)
DX: K56.7 Ileus, unspecified (principal); R18.0 Malignant ascites; C56.9 Malignant neoplasm of unspecified ovary; N13.1 Hydronephrosis with ureteral stricture, not elsewhere classified; K80.20 Calculus of gallbladder without cholecystitis without obstruction; R93.3 Abnormal findings on diagnostic imaging of other parts of digestive tract; E87.6 Hypokalemia; K21.9 Gastro-esophageal reflux disease without esophagitis; E03.9 Hypothyroidism, unspecified; Z86.010 Personal history of colon polyps; Z87.440 Personal history of urinary (tract) infections; Z80.0 Family history of malignant neoplasm of digestive organs; Z80.3 Family history of malignant neoplasm of breast; Z82.49 Family history of ischemic heart disease and other diseases of the circulatory system; Z83.3 Family history of diabetes mellitus; Z79.82 Long term (current) use of aspirin; Z79.899 Other long term (current) drug therapy

== ENCOUNTER 2017-03-02 04:28 | Emergency (ER) | payer OTHER ==
[~2017-03-02] VITALS: Ht 165.1 cm; Wt 98.2 kg
[2017-03-02 04:36] VITALS: TEMP 37.4; Ht 165.1 cm; Wt 98.2 kg
[2017-03-02] MEDS ORDERED: OXYMETAZOLINE HCL 0.05% NA SPR 15 ML BTL NAE ONE (04:45)
--- NOTE | 2017-03-02 04:48 | EMERGENCY ROOM VISIT NOTE ---
History Report prepared by Nely: Narciso Carrasco Under the Supervision of: Dr. Bigg Duran M.D. First contact with patient: 04:34 Chief Complaint: RESPIRATORY DISTRESS Stated Complaint: COUGHING UP BLOOD History of Present Illness The patient is a 71 year old female who presents to the Emergency Room via EMS with complaints of an episode of coughing that occurred earlier this morning. Per the patient's daughter, the patient was just discharged from a hospital in [place] yesterday for metastatic ovarian cancer. The patient was sleeping earlier this morning, and was noted to be coughing, but she was not coughing yesterday. A bit later, the patient was noted to have an increasing cough with blood running out of the corners of her mouth and her right nostril. The patient states that she thinks that a cold sore in her mouth was bleeding. She says that she has not coughed up any blood since she woke up and she says that she feels fine. The patient denies any shortness of breath, nausea, vomiting, headaches, back pain, falls, or injuries. She states that she just started Lovenox for a pulmonary embolus. The patient says that she has not started chemotherapy yet. Per the patient's daughter, the patient had a CT with contrast a few days ago which showed some shadowing on the patient's colon and stomach, so she is planning to have more testing done. Source of History: patient, family (daughter) Onset: Earlier this morning Position: other (global - cough) Quality: other (with blood) Timing: other (episode) Associated Symptoms: No headache, No SOB, No nausea, No vomiting, No back pain Note: Associated symptoms: Blood running out of corners of mouth and right nostril. Feels fine now. Denies fall or injuries. Review of Systems See HPI for pertinent positives & negatives. A total of 10 systems reviewed and were otherwise negative. Past Medical & Surgical Medical Problems: (1) Abdominal pain (2) Diverticulitis Family History No significant family history Social History Smoking Status: Never Smoker Drug Use: none Marital Status: Occupation Status: retired Current/Historical Medications Scheduled Calcium Carbonate-Vitamin D W/ (Caltrate 600 Plus), 1 TAB PO DAILY Cholecalciferol (Vitamin D3), 2,000 UNIT PO DAILY Enoxaparin (Enoxaparin Sodium), 100 MG SQ Q12 Glucosamine-Chondroitin (Osteo Bi-Flex Regular Str), 1 TAB PO DAILY Levothyroxine Sodium (Synthroid), 100 MCG PO DAILY Pantoprazole (Pantoprazole Sodium), 40 MG PO DAILY Polyethylene Glycol 3350 (Miralax), 17 GM PO DAILY Senna (Senokot), 1 TAB PO BID Allergies Coded Allergies: No Known Allergies (Unverified , 03/02/17) Physical Exam Vital Signs Date Time Temp Pulse Resp B/P (MAP) Pulse Ox O2 Delivery O2 Flow Rate FiO2 03/02/17 05:33 92 20 95 03/02/17 05:31 146/86 03/02/17 05:18 98 16 94 03/02/17 05:13 94 15 95 03/02/17 05:01 145/81 03/02/17 04:58 92 17 95 03/02/17 04:43 95 18 96 Room Air 03/02/17 04:38 95 03/02/17 04:36 150/87 03/02/17 04:36 37.4 95 20 150/87 95 Room Air Physical Exam GENERAL: Patient is well appearing and in no acute distress. HEENT: Dry blood in right nares. Healing cold sore with scab on right lower lip. Normocephalic atraumatic, mucous membranes moist, no scleral icterus. NECK: No stridor, no adenopathy, no meningismus, trachea is midline. LUNGS: No dyspnea. Clear to auscultation and equal bilaterally. No wheeze, no rhonchi. HEART: Regular rate and rhythm. No murmurs, rubs, gallops appreciated. ABDOMEN: Soft, nontender, bowel sounds positive, no masses appreciated, no peritonitis. BACK: No midline tenderness, no CVA tenderness EXTREMITIES: Normal motion all extremities, no cyanosis, no edema. NEUROLOGIC: Alert and oriented, no acute motor or sensory deficits, no focal weakness, cranial nerves grossly intact. SKIN: No rash, no jaundice, no diaphoresis. Medical Decision & Procedures ER Provider Diagnostic Interpretation: X ray results are stated below per my interpretation and the radiologist's interpretation. CHEST 2-VIEW X-RAY: no infiltrate, no effusion, no pneumothorax. Medications Administered Medications (Trade) Dose Ordered Sig/Rose Route Start Time Stop Time Status Last Admin Dose Admin Oxymetazoline HCl (Afrin 0.05% Nasal [place]) 3 sprays NOW ONCE FELY 03/02/17 04:45 03/02/17 04:46 DC 03/02/17 04:54 3 SPRAYS ED Course 0437: The patient was evaluated in room A12B. A complete history and physical exam was performed. 0445: Ordered Afin 0.05% Nasal [place] 3 sprays FELY. 0525: I reevaluated the patient and she is resting comfortably. The patient verbally expressed understanding and agreement of the treatment plan. The patient will be discharged. Medical Decision Very pleasant 71 yr old female with recently diagnosed metastatic ovarian CA without yet starting treatment who was found to have PE last week and started on Lovenox injections. Home 24 hours and sleeping this evening when daughter noted her coughing and on waking has epistaxis and some blood in mouth. Coughed up a bit of blood with sitting up but has since resolved. No further bleeding. Denies shob, further cough, nor other symptoms. No other bleeding nor chest pain. CXR unremarkable. Afrin bilateral nares and clamp. Removed and patient doing well. Suspect she had bloody nose dripping posterior pharynx causing cough and some blood in what she coughed up. With no further symptoms, no sob, normal CXR, and feeling well I am not sure that any labs are required, especially given normal vitals. I do not see indication for CT at this time. She has no active hemoptysis and is stable. We discussed monitoring at home and symptoms requiring RTED/911. Reviewed symptoms to monitor for given her lovenox use as well. Made her and daughter aware we are always here to help if need be. Medication Reconcilliation Current Medication List: was personally reviewed by me Blood Pressure Screening Patient's blood pressure: Elevated blood pressure Blood pressure disposition: Referred to PCP Impression Primary Impression: Epistaxis Additional Impression: Hemoptysis Scribe Attestation The scribe's documentation has been prepared under my direction and personally reviewed by me in its entirety. I confirm that the note above accurately reflects all work, treatment, procedures, and medical decision making performed by me. Departure Information Dispostion Home / Self-Care Referrals Geena Watts D.O. (PCP) Patient Instructions ED Nosebleed, My [facility] Additional Instructions Return or call 911 if heavy bleeding, coughing up large amounts of blood, difficulty breathing, passing out, or other concerns as we discussed We are always here to help you. Problem Qualifiers
[2017-03-02] MEDS ORDERED: SYN100 PO (05:00)
[2017-03-02] MEDS ORDERED: LVNIS100 SQ (05:00)
[2017-03-02] MEDS ORDERED: PRT/40 PO (05:00)
[2017-03-02] MEDS ORDERED: CHOL2000 PO (05:00)
[2017-03-02] MEDS ORDERED: CALCTAB7 PO (05:02)
[2017-03-02] MEDS ORDERED: POLY335019 PO (05:02)
[2017-03-02] MEDS ORDERED: SENN-61 PO (05:02)
[2017-03-02] MEDS ORDERED: GLUCTAB18 PO (05:02)
[2017-03-02 05:31] VITALS: BP 146/86
[2017-03-02 05:33] VITALS: PULSE 92; O2SAT 95
--- NOTE | 2017-03-02 06:16 | DIAGNOSTIC IMAGING REPORT ---
CHEST 2 VIEWS ROUTINE CLINICAL HISTORY: hemoptysis vs epistaxis. On Lovenox with known PE dyspnea COMPARISON STUDY: No previous studies for comparison. FINDINGS: Trace bilateral pleural effusions. Lungs otherwise are clear. No evidence for cardiac enlargement. IMPRESSION: Small bilateral pleural effusions. Otherwise negative study. Several old left-sided rib fractures. The above report was generated using voice recognition software. It may contain grammatical, syntax or spelling errors. Electronically signed by: Jamaal Pardo M.D. 03/02/2017 6:14 AM Dictated Date/Time: 03/02/2017 6:13 AM
== END 2017-03-02 05:45 | disposition home or self-care (01) ==
LOC: EDBD 04:28 → C.EDA 04:29
DX: R04.2 Hemoptysis (principal); R04.0 Epistaxis; C56.9 Malignant neoplasm of unspecified ovary; Z79.01 Long term (current) use of anticoagulants; Z86.718 Personal history of other venous thrombosis and embolism; Z79.899 Other long term (current) drug therapy